=== PATIENT | female | born 1955 | race Caucasian/White ===

== ENCOUNTER 2016-12-23 00:14 | Emergency (ER) | payer OTHER ==
[2016-12-23] MEDS ORDERED: Zofran 4 MG/2 ML VIAL IV ONE (00:28)
[2016-12-23] MEDS ORDERED: PROTONIX 40 MG IV IV ONE ×2 (00:28→00:39)
[2016-12-23] MEDS ORDERED: GI COCKTAIL 60ML (Belladonn/Phenobarb/Lidoc PO ONE (00:28)
[2016-12-23] MEDS ORDERED: Sodium Chloride 0.9% 1000 ML 1,000 ML IV SCH (00:30)
--- NOTE | 2016-12-23 00:37 | ERPHSYRPT ---
- History of Present Illness Time Seen by Provider: 12/23/16 00:25 Historian: patient Exam Limitations: clinical condition Physician History: PATIENT WITH HISTORY OF DEPRESSION, COMPLAINS OF UPPER EPIGASTRIC PAIN TONIGHT, 4 HOURS AFTER DINNER, DENIES DYSPNEA, DIAPHORESIS, PALPITATIONS, CHEST PAIN, RADIATION TO BACK OR SHOULDER BLADE. Timing/Duration: today Activities at Onset: none Quality: burning, pressure Abdominal Pain Onset Location: epigastric Pain Radiation: no radiation Severity of Pain-Max: severe Severity of Pain-Current: severe Modifying Factors: Improves With: eating Associated Symptoms: nausea Previous symptoms: no prior history Allergies/Adverse Reactions: No Known Drug Allergies Allergy (Unverified 06/10/14 10:07) Home Medications: Aspirin [Jes Chewable] 81 mg PO DAILY 06/10/14 [History] Cholecalciferol (Vitamin D3) [Vitamin D] 800 unit PO DAILY 06/10/14 [History] Sertraline HCl 50 mg [Zoloft 50 mg Tablet] 50 mg PO DAILY 06/10/14 [History] Hx Tetanus, Diphtheria Vaccination/Date Given: No Hx Influenza Vaccination/Date Given: No Hx Pneumococcal Vaccination/Date Given: No - Review of Systems Constitutional: No Fever, No Chills Eyes: No Symptoms Ears, Nose, & Throat: No Symptoms Respiratory: No Symptoms, No Cough, No Dyspnea Cardiac: No Chest Pain, No Edema, No Syncope Abdominal/Gastrointestinal: Abdominal Pain, Nausea, No Vomiting, No Diarrhea Genitourinary Symptoms: No Symptoms, No Dysuria Musculoskeletal: No Symptoms, No Back Pain, No Neck Pain Skin: No Symptoms, No Rash Neurological: No Dizziness, No Focal Weakness, No Sensory Changes Psychological: No Symptoms Endocrine: No Symptoms All Other Systems: Reviewed and Negative - Past Medical History Pertinent Past Medical History: Yes Neurological History: No Pertinent History Cardiac History: Myocardial Infarction ([place]) Respiratory History: No Pertinent History Endocrine Medical History: No Pertinent History Musculoskeletal History: Osteoarthritis Psycho-Social History: Depression Other Medical History: SILENT [place] 6-7 YEARS AGO - Past Surgical History Past Surgical History: Yes Female Surgical History: Hysterectomy - Social History Smoking Status: Never smoker Exposure to second hand smoke: No Drug Use: none Patient Lives Alone: No - Nursing Vital Signs Nursing Vital Signs: Initial Vital Signs Temperature 98 F 12/23/16 00:26 Pulse Rate 76 12/23/16 00:26 Respiratory Rate 16 12/23/16 00:26 Blood Pressure 143/80 12/23/16 00:26 O2 Sat by Pulse Oximetry 97 12/23/16 00:26 Pain Scale Pain Intensity 4 - Physical Exam General Appearance: mild distress Eye Exam: PERRL/EOMI, eyes nml inspection Ears, Nose, Throat Exam: normal ENT inspection, pharynx normal, moist mucous membranes Neck Exam: normal inspection, non-tender, supple, full range of motion Respiratory Exam: normal breath sounds, lungs clear, No respiratory distress Cardiovascular Exam: regular rate/rhythm, normal heart sounds Gastrointestinal/Abdomen Exam: soft, normal bowel sounds, tenderness (, RIGHT UPPER QUAD TENDERNESS), No mass Back Exam: normal inspection, normal range of motion, No CVA tenderness, No vertebral tenderness Extremity Exam: normal inspection, normal range of motion, pelvis stable Neurologic Exam: alert, oriented x 3, cooperative, normal mood/affect, nml cerebellar function, sensation nml, No motor deficits Skin Exam: normal color, warm, dry SpO2 Interpretation: normal SpO2: 97 Oxygen Delivery: Room Air - Course EKG Interpreted by Me: RATE, Sinus Rhythm, NORMAL AXIS - CT Exams Abdomen/Pelvis CT Interpretation: Tele-radiologist Report (QUESTION MILD ANTRAL/PROXIMAL DUODENAL WALL THICKENING), Normal Appendix Ordered Tests: Active Orders 24 hr Category Date Time Status Clean Catch Urine Specimen STAT Care 12/23/16 00:28 Active EKG-ER Only STAT Care 12/23/16 00:28 Active IV Insertion STAT Care 12/23/16 00:28 Active ABDOMEN AND PELVIS W CONTRAST [CT] Stat Exams 12/23/16 00:28 Taken AMYLASE Stat Lab 12/23/16 00:30 Completed CBC W DIFF Stat Lab 12/23/16 00:30 Completed CMP Stat Lab 12/23/16 00:30 Completed LIPASE Stat Lab 12/23/16 00:30 Completed TROPONIN Q3H Lab 12/23/16 00:30 Completed TROPONIN Q3H Lab 12/23/16 03:30 Ordered TROPONIN Q3H Lab 12/23/16 06:30 Ordered TROPONIN Q3H Lab 12/23/16 09:30 Ordered TROPONIN Q3H Lab 12/23/16 12:30 Ordered Urine Triage Profile Stat Lab 12/23/16 01:37 Completed Medication Summary Generic Name Dose Route Start Last Admin Trade Name Freq PRN Reason Stop Dose Admin Fentanyl Citrate 100 mcg 12/23/16 02:00 Sublimaze 100 Mcg/2 Ml IV 12/23/16 02:01 STAT ONE Sodium Chloride 1,000 mls @ 250 mls/hr 12/23/16 00:41 12/23/16 00:53 Sodium Chloride 0.9% 1000 Ml IV 12/23/16 04:40 250 mls/hr .Q4H STA Administration Discontinued Medications Generic Name Dose Route Start Last Admin Trade Name Nevin PRN Reason Stop Dose Admin Al Hydrox/Mg Hydrox/Simethicone Confirm 12/23/16 00:41 Maalox Es 30 Ml Unit Dose Administered 12/23/16 00:42 Dose 30 ml .ROUTE .STK-MED ONE Belladonna Alkaloids/Phenobarbital 60 ml 12/23/16 00:28 12/23/16 00:54 Gi Cocktail 60ml (Belladonn/Phenobarb/Lidoc* PO 12/23/16 00:29 60 ml STAT ONE Administration Belladonna Alkaloids/Phenobarbital Confirm 12/23/16 00:42 Donnatol Liquid Administered 12/23/16 00:43 Dose 64.8 mg .ROUTE .STK-MED ONE Sodium Chloride 1,000 mls @ 100 mls/hr 12/23/16 00:30 Sodium Chloride 0.9% 1000 Ml IV 01/22/17 00:29 .Q10H TABITHA Sodium Chloride Confirm 12/23/16 00:41 Sodium Chloride 0.9% 1000 Ml Administered 12/23/16 00:42 Dose 1,000 mls @ ud .ROUTE .STK-MED ONE Lidocaine HCl Confirm 12/23/16 00:40 Xylocaine Hcl Viscous * Administered 12/23/16 00:41 Dose 20 ml .ROUTE .STK-MED ONE Ondansetron HCl 4 mg 12/23/16 00:28 12/23/16 00:53 Zofran 4 Mg/2 Ml Vial IV 12/23/16 00:29 4 mg STAT ONE Administration Ondansetron HCl Confirm 12/23/16 00:39 Zofran 4 Mg/2 Ml Vial Administered 12/23/16 00:40 Dose 4 mg .ROUTE .STK-MED ONE Pantoprazole Sodium 40 mg 12/23/16 00:28 12/23/16 00:54 Protonix 40 Mg Iv IV 12/23/16 00:29 40 mg STAT ONE Administration Pantoprazole Sodium Confirm 12/23/16 00:39 Protonix 40 Mg Iv Administered 12/23/16 00:40 Dose 40 mg IV .K-MED ONE Lab/Rad Data: Laboratory Result Diagrams 12/23/16 00:30 12/23/16 00:30 Laboratory Results 12/23/16 12/23/16 12/23/16 Range/Units 01:37 00:30 00:30 WBC (4.0-10.5) K/mm3 RBC (4.1-5.4) M/mm3 Hgb (12.0-16.0) gm/dl Hct (35-47) % MCV (78-100) fl MCH (26-32) pg MCHC (32-36) g/dl RDW (11.5-14.0) % Plt Count (150-450) K/mm3 MPV (6-9.5) fl Gran % (36.0-66.0) % Lymphocytes % (24.0-44.0) % Monocytes % (0.0-12.0) % Eosinophils % (0.00-5.0) % Basophils % (0.0-0.4) % Basophils # (0-0.4) Sodium 142 (136-145) mEq/L Potassium 3.5 (3.5-5.1) mEq/L Chloride 106 (98-107) mEq/L Carbon Dioxide 24.8 (21-32) mEq/L Anion Gap 15.0 (5-15) MEQ/L BUN 22 H (9-20) mg/dL Creatinine 0.95 (0.55-1.30) mg/dl Estimated GFR > 60 ML/MIN Glucose 116 H (70-110) MG/DL Calcium 9.6 (8.5-10.1) mg/dL Total Bilirubin 0.50 (0.2-1.0) mg/dL AST 25 (15-37) U/L ALT 32 (12-78) U/L Alkaline Phosphatase 89 (46-116) U/L Troponin I < 0.017 (0.000-0.056) ng/ml Serum Total Protein 6.9 (6.4-8.2) gm/dL Albumin 3.9 (3.4-5.0) g/dL Amylase 41 (25-115) U/L Lipase 164 (73-393) U/L Urine Opiates Level NEG. (NEGATIVE) Ur Methadone NEG. (NEGATIVE) Urine Barbiturates NEG. (NEGATIVE) Ur Phencyclidine (PCP) NEG. (NEGATIVE) Urine Amphetamine POS. (NEGATIVE) U Benzodiazepine Level NEG. (NEGATIVE) Urine Cocaine NEG. (NEGATIVE) Urine Marijuana (THC) NEG. (NEGATIVE) 12/23/16 Range/Units 00:30 WBC 7.8 (4.0-10.5) K/mm3 RBC 4.21 (4.1-5.4) M/mm3 Hgb 12.6 (12.0-16.0) gm/dl Hct 37.8 (35-47) % MCV 89.8 (78-100) fl MCH 29.9 (26-32) pg MCHC 33.3 (32-36) g/dl RDW 13.5 (11.5-14.0) % Plt Count 266 (150-450) K/mm3 MPV 10.4 H (6-9.5) fl Gran % 61.6 (36.0-66.0) % Lymphocytes % 25.6 (24.0-44.0) % Monocytes % 11.0 (0.0-12.0) % Eosinophils % 1.4 (0.00-5.0) % Basophils % 0.4 (0.0-0.4) % Basophils # 0.03 (0-0.4) Sodium (136-145) mEq/L Potassium (3.5-5.1) mEq/L Chloride (98-107) mEq/L Carbon Dioxide (21-32) mEq/L Anion Gap (5-15) MEQ/L BUN (9-20) mg/dL Creatinine (0.55-1.30) mg/dl Estimated GFR ML/MIN Glucose (70-110) MG/DL Calcium (8.5-10.1) mg/dL Total Bilirubin (0.2-1.0) mg/dL AST (15-37) U/L ALT (12-78) U/L Alkaline Phosphatase (46-116) U/L Troponin I (0.000-0.056) ng/ml Serum Total Protein (6.4-8.2) gm/dL Albumin (3.4-5.0) g/dL Amylase (25-115) U/L Lipase (73-393) U/L Urine Opiates Level (NEGATIVE) Ur Methadone (NEGATIVE) Urine Barbiturates (NEGATIVE) Ur Phencyclidine (PCP) (NEGATIVE) Urine Amphetamine (NEGATIVE) U Benzodiazepine Level (NEGATIVE) Urine Cocaine (NEGATIVE) Urine Marijuana (THC) (NEGATIVE) - Progress Progress: improved, pain not gone completely Progress Note: 12/23/16 02:07 PATIENT GIVEN IV NORMAL SALINE 250ML/HR, ZOFRAN ,4MG, PROTONIX 40MG IV, GI COCKTAIL WHICH IMPROVED PAIN. FENTANYL 100MCG IV Counseled pt/family regarding: lab results, diagnosis, need for follow-up, rad results - Departure Time of Disposition: 02:30 Departure Disposition: Home Clinical Impression: ABDOMINAL PAIN Condition: Stable Critical Care Time: No Additional Instructions: AVOID GREASY OR SPICY FOODS. BEGIN PREVACID 30MG DAILY FOR 4 WEEKS. CONSULT YOUR PRIMARY CARE PHYSICIAN IN 1 WEEK. FOLLOWUP WITH YOUR FAMILY PHYSICIAN IN 1 WEEK. RETURN TO EMERGENCY FOR ONSET OF INCREASING PAIN OR VOMITING. Prescriptions: Lansoprazole [Prevacid] 30 mg PO DAILY #30 capsule.
[2016-12-23] MEDS ORDERED: Zofran 4 MG/2 ML VIAL ONE (00:39)
[2016-12-23] MEDS ORDERED: XYLOCAINE HCl Viscous ONE (00:40)
[2016-12-23 00:41] LABS: BASOPHIL % 0.4 % (0.0-0.4); Eosinophil % 1.4 % (0.00-5.0); Granulocytes % 61.6 % (36.0-66.0); Lymphocytes % 25.6 % (24.0-44.0); Mean Cell Volume 89.8 fl (78-100); Mean Corpuscular Hemoglobin 29.9 pg (26-32); Mean Platelet Volume 10.4 fl (6-9.5); Platelet Count 266 K/mm3 (150-450); Red Blood Count 4.21 M/mm3 (4.1-5.4); Red Cell Distribution Width 13.5 % (11.5-14.0); White Blood Count 7.8 K/mm3 (4.0-10.5)
[2016-12-23] MEDS ORDERED: Sodium Chloride 0.9% 1000 ML 1,000 ML IV STA (00:41)
[2016-12-23] MEDS ORDERED: MAALOX ES 30 ML UNIT DOSE ONE (00:41)
[2016-12-23] MEDS ORDERED: Sodium Chloride 0.9% 1000 ML 1,000 ML ONE ×2 (00:41→02:07)
[2016-12-23] MEDS ORDERED: Donnatol Liquid ONE (00:42)
[2016-12-23 01:02] LABS: ALBUMIN 3.9 g/dL (3.4-5.0); ALKALINE PHOSPHATASE 89 U/L (46-116); BLOOD UREA NITROGEN 22 mg/dL (9-20); CHLORIDE 106 mEq/L (98-107); Carbon Dioxide 24.8 mEq/L (21-32); Glucose 116 MG/DL (70-110); LIPASE 164 U/L (73-393); Potassium 3.5 mEq/L (3.5-5.1); SGOT/AST 25 U/L (15-37); SGPT/ALT 32 U/L (12-78); SODIUM 142 mEq/L (136-145); Total Protein 6.9 gm/dL (6.4-8.2)
[2016-12-23] MEDS ORDERED: SUBLIMAZE 100 MCG/2 ML IV ONE (02:00)
[2016-12-23 02:06] VITALS: O2SAT 97
[2016-12-23] MEDS ORDERED: SUBLIMAZE 100 MCG/2 ML ONE (02:06)
[2016-12-23 02:58] VITALS: BP 112/70; PULSE 92
--- NOTE | 2016-12-23 08:48 | XRAY ---
Indication: Chest/upper abdomen pain. Nausea. Multiple contiguous axial images obtained through the abdomen and pelvis using 80 cc Isovue 370 contrast only. Comparison: None Lung bases demonstrate minimal bibasilar dependent atelectasis. Heart is not enlarged. Stomach is distended with food. Noncontrasted bowel loops appear nonobstructed. Query descending/transverse duodenum wall thickening. There is mild/moderate diffuse scattered colonic fecal debris throughout. Normal appendix. No free fluid/air. Gallbladder is contracted without gallstones or biliary distention. Previous hysterectomy. Remaining liver, pancreas, spleen, adrenal glands, kidneys, ureters, bladder, and aorta appear unremarkable. No pathologic retroperitoneal lymphadenopathy. Osseous structures intact. Impression: 1. Fecal stasis without obstruction. 2. Query duodenal wall thickening. Rule out duodenitis. Comment: Preliminary interpretation was made by [facility]. No critical discrepancy. CT DI 12.
== END 2016-12-23 03:11 | disposition home or self-care (01) ==
LOC: ED 00:14
DX: R10.13 Epigastric pain (principal); R11.0 Nausea
CPT/HCPCS: 36000; 36415; 74177; 80053; 80307; 82150; 83690; 84484; 85025; 93005; 96360; 96365; 96374; 96375; 99284; J2405; J3010; A9270-GY

== ENCOUNTER 2021-06-26 06:36 | Emergency (ER) | payer OTHER ==
--- NOTE | 2021-06-26 07:39 | ERPHSYRPT ---
- History of Present Illness Time Seen by Provider: 06/26/21 07:00 Source: patient Exam Limitations: no limitations Patient Subjective Stated Complaint: sore throat and cough Triage Nursing Assessment: pt c/o sore throat, cough, headache and body aches. Pt states, "My throat hurts so bad that it hurts to swallow". Lungs clear, heart tones reg. Pt had telephone visit with Dr. Suárez yesterday and he put her on amoxicillin for strep throat. Physician History: This is a 66-year-old white female with history of hypertension hypothyroidism and presents with sore throat that is significant and started abruptly yeste rday. Patient was evaluated by telemedicine and was prescribed amoxicillin which she took. This morning, she states her throat is more sore than yesterday and is having difficulty swallowing. Patient has no shortness of breath. She has a mild cough but it hurts to cough. She has not had a fever. She has no known exposure to individuals who have been ill other than her granddaughter that had strep throat. Timing/Duration: yesterday Cough Quality/Degree: mild, dry cough Possible Cause: no prior episodes Modifying Factors: Improves With: nothing Associated Symptoms: sore throat Allergies/Adverse Reactions: No Known Drug Allergies Allergy (Verified 06/26/21 06:55) Home Medications: Aspirin [Jes Chewable] 81 mg PO DAILY 06/10/14 [History] Cholecalciferol (Vitamin D3) [Vitamin D] 1,000 unit PO DAILY 06/10/14 [History] Sertraline HCl 50 mg [Zoloft 50 mg Tablet] 50 mg PO DAILY 06/10/14 [History] ALPRAZolam [Alprazolam] 0.5 mg PO HS 06/26/21 [History] Amlodipine Besylate 5 mg [Norvasc 5 mg] 5 mg PO DAILY 06/26/21 [History] Amoxicillin 500 mg PO TID 06/26/21 [History] Atorvastatin Calcium 40 mg PO DAILY 06/26/21 [History] Bupropion HCl [Wellbutrin Xl] 300 mg PO DAILY 06/26/21 [History] Levothyroxine Sodium 1 tab PO DAILY 06/26/21 [History] Sertraline HCl [Zoloft] 100 mg PO HS 06/26/21 [History] hydroCHLOROthiazide [Hydrochlorothiazide] 12.5 mg PO DAILY 06/26/21 [History] Hx Tetanus, Diphtheria Vaccination/Date Given: Yes Hx Influenza Vaccination/Date Given: No Hx Pneumococcal Vaccination/Date Given: No Immunizations Up to Date: Yes Travel Risk - International Travel Have you traveled outside of the country in past 3 weeks: No - Coronavirus Screening Are you exhibiting any of the following symptoms?: Yes Symptoms: Fever, Cough: New Onset, Shortness of Breath, Headaches/Body Aches/Fatigue Close contact with a COVID-19 positive Pt in past 14-21 Days: No - Vaccine Status Have you recieved a Covid-19 vaccination: No - Review of Systems Constitutional: No Symptoms Eyes: No Symptoms Ears, Nose, & Throat: Throat Pain, Painful Swallowing Respiratory: No Symptoms Cardiac: No Symptoms Abdominal/Gastrointestinal: No Symptoms Genitourinary Symptoms: No Symptoms Musculoskeletal: No Symptoms Skin: No Symptoms Neurological: No Symptoms Psychological: No Symptoms Endocrine: No Symptoms Hematologic/Lymphatic: No Symptoms Immunological/Allergic: No Symptoms All Other Systems: Reviewed and Negative - Past Medical History Pertinent Past Medical History: Yes Neurological History: No Pertinent History Cardiac History: Arrhythmia, Coronary Artery Disease, High Cholesterol, Hypertension, Myocardial Infarction ([place]) Respiratory History: No Pertinent History Endocrine Medical History: No Pertinent History Musculoskeletal History: Arthritis Psycho-Social History: Depression Other Medical History: Silent [place] 8-10 years ago, heart cath - Past Surgical History Past Surgical History: Yes Neuro Surgical History: No Pertinent History Cardiac: Cardiac Catheterization Respiratory: No Pertinent History Gastrointestinal: No Pertinent History Genitourinary: No Pertinent History Musculoskeletal: Joint Replacement Female Surgical History: Hysterectomy Other Surgical History: rt knee replacement - Social History Smoking Status: Never smoker Exposure to second hand smoke: No Drug Use: none Patient Lives Alone: Yes - Female History Hx Now: No - Nursing Vital Signs Nursing Vital Signs: Initial Vital Signs Temperature 100.4 F 06/26/21 06:44 Pulse Rate 82 06/26/21 06:44 Respiratory Rate 18 06/26/21 06:44 Blood Pressure 139/83 06/26/21 06:44 O2 Sat by Pulse Oximetry 96 06/26/21 06:44 Pain Scale Pain Intensity 9 - Physical Exam General Appearance: no apparent distress, alert, anxiety Eye Exam: PERRL/EOMI, eyes nml inspection Ears, Nose, Throat Exam: moist mucous membranes, pharyngeal erythema Neck Exam: normal inspection, non-tender, supple, full range of motion Respiratory Exam: normal breath sounds, lungs clear, airway intact, No chest tenderness, No respiratory distress Cardiovascular Exam: regular rate/rhythm, normal heart sounds, normal peripheral pulses Gastrointestinal/Abdomen Exam: soft, normal bowel sounds, No tenderness Pelvic Exam: not done Rectal Exam: not done Back Exam: normal inspection, normal range of motion, No CVA tenderness, No vertebral tenderness Extremity Exam: normal inspection, normal range of motion, pelvis stable Neurologic Exam: alert, oriented x 3, cooperative, anode worker II-XII nml as tested, normal mood/affect, nml cerebellar function, nml station & gait, sensation nml Skin Exam: normal color, warm, dry Lymphatic Exam: No adenopathy SpO2 Interpretation: normal SpO2: 96 O2 Delivery: Room Air - Course Nursing assessment & vital signs reviewed: Yes Ordered Tests: Active Orders 24 hr Category Date Time Status COVID AG-BINAX NOW RAPID TEST Stat Lab 06/26/21 07:30 Completed INFLUENZA A+B EDGAR Stat Lab 06/26/21 07:30 Completed Medication Summary Discontinued Medications Generic Name Dose Route Start Last Admin Trade Name Freq PRN Reason Stop Dose Admin Methylprednisolone Sodium 0 mg 06/26/21 08:52 06/26/21 08:57 Succinate 125 mg/ Sterile IM 06/26/21 08:53 125 mg Water 2 ml STAT ONE Administration Methylprednisolone Sodium Succinate Confirm 06/26/21 08:55 Methylprednis Sod Succ 125 Mg/2 Ml Vial Administered 06/26/21 08:56 Dose 125 mg .ROUTE .STK-MED ONE Sterile Water Confirm 06/26/21 08:55 Water For Injection,Sterile 10 Ml Vial Administered 06/26/21 08:56 Dose 10 ml IJ .STK-MED ONE Lab/Rad Data: Laboratory Results 06/26/21 06/26/21 Range/Units 07:30 07:30 Influenza Type A Ag NEGATIVE (NEGATIVE) Influenza Type B Ag NEGATIVE (NEGATIVE) SARS-CoV-2 Ag (Rapid) POSITIVE A* (NEGATIVE) Group A Strep Antibody NOT DETECTED (NEGATIVE) - Progress Progress: unchanged Air Movement: good Blood Culture(s) Obtained: No Antibiotics given: No Counseled pt/family regarding: lab results, diagnosis, need for follow-up - Departure Departure Disposition: Home Clinical Impression: COVID-19 virus infection, Viral pharyngitis Condition: Stable Critical Care Time: No Referrals: ANGELICA KRISHNA [Primary Care Provider] - Follow up/PCP as directed Additional Instructions: Drink plenty of cold fluids. Take your medication as prescribed. May also add cough drops as needed daily. Follow-up with your primary care physician for further management. Quarantine yourself per instructions. Prescriptions: Hydrocodone/Acetaminophen [Hydrocodone-Acetamn 7.5-325/15] 10 ml PO Q8H PRN PRN #120 ml MDD 30 ml PRN Reason: Cough Prednisone 10 mg [Deltasone 10 mg] 10 mg PO TID #12 tablet
[2021-06-26 08:31] LABS: INFLUENZA A NEGATIVE (NEGATIVE); INFLUENZA B NEGATIVE (NEGATIVE)
[2021-06-26 08:32] LABS: COVID AG -BINAX NOW RAPID TEST POSITIVE (NEGATIVE)
[2021-06-26] MEDS ORDERED: solu-MEDROL 125 MG, Sterile H2O 10 ml 2 ML IM ONE ×2 (08:52)
[2021-06-26] MEDS ORDERED: solu-MEDROL ONE (08:55)
[2021-06-26] MEDS ORDERED: Sterile H2O 10 ml IJ ONE (08:55)
[2021-06-26 09:04] VITALS: BP 132/67; PULSE 88
[2021-06-26 19:09] VITALS: O2SAT 96
== END 2021-06-26 09:18 | disposition home or self-care (01) ==
LOC: ED 06:36
DX: U07.1 COVID-19 (principal); J02.8 Acute pharyngitis due to other specified organisms; B97.89 Other viral agents as the cause of diseases classified elsewhere; R13.10 Dysphagia, unspecified; R05.9 Cough, unspecified; E78.5 Hyperlipidemia, unspecified; I25.10 Atherosclerotic heart disease of native coronary artery without angina pectoris; I10 Essential (primary) hypertension; I25.2 Old myocardial infarction; Z79.891 Long term (current) use of opiate analgesic; Z79.52 Long term (current) use of systemic steroids; Z79.899 Other long term (current) drug therapy
CPT/HCPCS: 87400; 87651; 96372; 99000; 99284; J2930

== ENCOUNTER 2023-10-24 12:38 | Inpatient (IN) | payer MEDICARE, OTHER ==
[2023-10-24] MEDS ORDERED: Zofran 4 MG/2 ML VIAL ONE (13:22)
[2023-10-24] MEDS ORDERED: MORPHINE SULFATE 4 MG INJ ONE (13:22)
[2023-10-24] MEDS ORDERED: PROTONIX 40 MG IV IV ONE (13:22)
[2023-10-24] MEDS ORDERED: Sodium Chloride 0.9% 500 ML 500 ML IV ONE (13:23)
[2023-10-24] MEDS: Zofran 4 MG/2 ML VIAL IV ONE (13:27)
[2023-10-24] MEDS: PROTONIX 40 MG IV IV ONE (13:27)
[2023-10-24] MEDS: MORPHINE SULFATE 4 MG INJ IV ONE (13:27)
--- NOTE | 2023-10-24 13:27 | ERPHSYRPT ---
- History of Present Illness Time Seen by Provider: 10/24/23 12:54 Historian: patient, family Exam Limitations: no limitations Patient Subjective Stated Complaint: Abdominal pain Triage Nursing Assessment: Patient ambulated back to ED and transferred self to bed. Patient A+O X3. Patient complains of mid abdominal pain 6/10 that started 2 weeks ago that has gotten worse. Patient complains of mid abdominal pain 6/10 with N/V and diarrhea. Physician History: 68 years old female with history of hypertension, hyperlipidemia, coronary artery disease presented in the ER with complaint of epigastric/periumbilical area pain off and on for last 2 weeks with intermittent nausea and vomiting nonprojectile, nonbilious 3 times in 2 weeks. Also reports multiple episodes of loose stool without hematochezia. Patient reports pain is getting worse since last night and is unable to find a comfortable position. Patient been taking [id number] medication with no significant relief. Denies any chest pain or palpitations. No fever or chills reported. No history of C. difficile. Allergies/Adverse Reactions: No Known Drug Allergies Allergy (Verified 10/24/23 16:40) Home Medications: ALPRAZolam [Alprazolam] 0.5 mg PO TID PRN PRN 06/26/21 [History] Atorvastatin Calcium 80 mg PO DAILY 06/26/21 [History] hydroCHLOROthiazide [Hydrochlorothiazide] 50 mg PO DAILY 06/26/21 [History] Amlodipine Besylate 5 mg [Norvasc 5 mg] 2.5 mg PO HS 09/28/22 [History] Aspirin EC 81 mg [Ecotrin 81 mg] 1 tab PO DAILY 09/28/22 [History] Levothyroxine Sodium 25 Mcg [Synthroid 25 Mcg] 25 mcg PO DAILY 09/28/22 [History] Ascorbic Acid/Collagen Hydr [Collagen Plus Vit C Capsule] 2,500 mg PO DAILY 10/24/23 [History] Dextroamphetamine/Amphetamine [Dextroamp-Amphetamine 5 mg Tab] 5 mg PO 0800,1200 10/24/23 [History] Furosemide 20 mg [Lasix 20 mg] 20 mg PO DAILY 10/24/23 [History] Losartan Potassium 25 mg PO DAILY 10/24/23 [History] Sertraline HCl [Zoloft] 100 mg PO HS 10/24/23 [History] Vitamin D3/Soy Isoflavone [Iso D3 2,000 Unit Tablet] 2,000 units PO DAILY 10/24/23 [History] Hx Tetanus, Diphtheria Vaccination/Date Given: Yes Hx Influenza Vaccination/Date Given: No Hx Pneumococcal Vaccination/Date Given: No Immunizations Up to Date: Yes Travel Risk - International Travel Have you traveled outside of the country in past 3 weeks: No - Emerging Infectious Disease Are you exhibiting symptoms associated with any current EIDs: No - Review of Systems Constitutional: No Symptoms Ears, Nose, & Throat: No Symptoms Respiratory: No Symptoms Cardiac: No Symptoms Abdominal/Gastrointestinal: Abdominal Pain, Nausea, Vomiting, Diarrhea Genitourinary Symptoms: No Symptoms Musculoskeletal: No Symptoms Skin: No Symptoms Neurological: No Symptoms Endocrine: No Symptoms Hematologic/Lymphatic: No Symptoms Immunological/Allergic: No Symptoms - Past Medical History Pertinent Past Medical History: Yes Neurological History: No Pertinent History ENT History: Cataracts Cardiac History: Arrhythmia, Coronary Artery Disease, Myocardial Infarction (NH), High Cholesterol, Hypertension Respiratory History: No Pertinent History Endocrine Medical History: No Pertinent History, Hypothyroidism Musculoskeletal History: Arthritis, Osteoarthritis GI Medical History: No Pertinent History History: No Pertinent History Psycho-Social History: Depression, Anxiety Female Reproductive Disorders: Fibroids Other Medical History: SILENT NH, rheumatic fever, heart murmur, - Past Surgical History Past Surgical History: Yes Neuro Surgical History: No Pertinent History Cardiac: Cardiac Catheterization Respiratory: No Pertinent History Gastrointestinal: No Pertinent History Genitourinary: No Pertinent History Musculoskeletal: Joint Replacement Female Surgical History: Hysterectomy, Tubal Ligation Other Surgical History: maico knee replaced, - Social History Smoking Status: Former smoker Exposure to second hand smoke: Yes Drug Use: none Patient Lives Alone: Yes - Nursing Vital Signs Nursing Vital Signs: Initial Vital Signs Temperature 97.3 F 10/24/23 12:58 Pulse Rate 61 10/24/23 12:58 Respiratory Rate 18 10/24/23 12:58 Blood Pressure 152/86 10/24/23 12:58 O2 Sat by Pulse Oximetry 96 10/24/23 12:58 Pain Scale Pain Intensity 0 - Physical Exam General Appearance: no apparent distress, alert Eye Exam: PERRL/EOMI Ears, Nose, Throat Exam: normal ENT inspection Neck Exam: normal inspection, non-tender, supple, full range of motion Respiratory Exam: normal breath sounds, lungs clear Cardiovascular Exam: regular rate/rhythm, normal heart sounds Gastrointestinal/Abdomen Exam: soft, normal bowel sounds, tenderness (Umbilical and epigastric area. Mild tenderness right upper quadrant with negative Sloan sign.) Back Exam: normal inspection, normal range of motion Extremity Exam: normal inspection, normal range of motion Neurologic Exam: alert, oriented x 3, cooperative Skin Exam: normal color SpO2 Interpretation: normal SpO2: 96 O2 Delivery: Room Air Ordered Tests: Medication Summary Discontinued Medications Generic Name Dose Route Start Last Admin Trade Name Freq PRN Reason Stop Dose Admin Acetaminophen 650 mg 10/24/23 18:40 10/27/23 16:08 Acetaminophen 325 Mg Tablet PO 11/23/23 18:39 650 mg Q4H PRN PRN Administration PAIN, FEVER, HEADACHE Hydrocodone Bitart/Acetaminophen 1 tab 10/26/23 07:45 10/26/23 07:54 Hydrocodone/Apap 5/325 1 Tab Tablet PO 10/31/23 07:44 1 tab Q4H PRN PRN Administration PAIN Alprazolam 0.5 mg 10/24/23 18:15 10/27/23 19:57 Alprazolam 0.5 Mg Tablet PO 11/23/23 18:14 0.5 mg TID PRN PRN Administration NAUSEA/VOMITING Amlodipine Besylate 2.5 mg 10/24/23 22:00 10/28/23 23:09 Amlodipine Besylate 5 Mg Tablet PO 11/23/23 21:59 Not Given HS [facility] Aspirin 81 mg 10/25/23 12:00 10/25/23 12:44 Aspirin 81 Mg Tablet.Ec PO 11/24/23 11:59 Not Given DAILY@1200 [facility] Cholecalciferol 2,000 unit 10/25/23 12:00 10/28/23 12:22 Cholecalciferol (Vitamin D3) 1000 Unit Tablet PO 11/24/23 11:59 2,000 unit DAILY@1200 TABITHA Administration Furosemide 20 mg 10/27/23 10:58 Furosemide 20 Mg/Vial IV 10/27/23 10:59 STAT ONE Furosemide 40 mg 10/27/23 08:09 10/27/23 08:42 Furosemide 40 Mg/4 Ml Vial IV 10/27/23 08:10 40 mg STAT ONE Administration Sodium Chloride 500 mls @ 500 mls/hr 10/24/23 13:17 10/24/23 14:28 Sodium Chloride 0.9% 500 Ml IV 10/24/23 14:16 Infused .Q1H ONE Infusion Sodium Chloride Confirm 10/24/23 13:23 Sodium Chloride 0.9% 500 Ml Administered 10/24/23 13:24 Dose 500 mls @ ud IV .STK-MED ONE Potassium Chloride 20 meq in 100 mls @ 50 mls/hr 10/24/23 14:00 10/24/23 15:44 Potassium Chloride 20 Meq In Water 100ml IV 10/24/23 17:59 50 mls/hr Q2H TABITHA Administration Sodium Chloride 1,000 mls @ 125 mls/hr 10/24/23 14:15 10/24/23 14:10 Sodium Chloride 0.9% 1000 Ml IV 11/23/23 14:14 125 mls/hr .Q8H TABITHA Administration Levofloxacin/Dextrose 750 mg in 150 mls @ 100 mls/hr 10/24/23 14:48 10/24/23 15:44 Levofloxacin 750mg/150ml D5w IV 10/24/23 16:17 100 ml/hr STAT STA 100 mls/hr Administration Metronidazole 500 mg in 100 mls @ 200 mls/hr 10/24/23 14:48 10/24/23 15:45 Flagyl 500 Mg Ivpb IV 10/24/23 15:17 Infused STAT STA Infusion Metronidazole Confirm 10/24/23 15:08 Flagyl 500 Mg Ivpb Administered 10/24/23 15:09 Dose 500 mg in 100 mls @ ud IV .STK-MED ONE Levofloxacin/Dextrose Confirm 10/24/23 15:43 Levofloxacin 750mg/150ml D5w Administered 10/24/23 15:44 Dose 750 mg in 150 mls @ ud IV .STK-MED ONE Potassium Chloride Confirm 10/24/23 14:04 Potassium Chloride 20 Meq In Water 100ml Administered 10/24/23 14:05 Dose 100 mls @ ud IV .STK-MED ONE Potassium Chloride Confirm 10/24/23 15:43 Potassium Chloride 20 Meq In Water 100ml Administered 10/24/23 15:44 Dose 100 mls @ ud IV .STK-MED ONE Sodium Chloride 1,000 mls @ 100 mls/hr 10/24/23 18:45 10/26/23 11:52 Sodium Chloride 0.9% 1000 Ml IV 11/23/23 18:44 Not Given .Q10H TABITHA Magnesium Sulfate/Dextrose 100 mls @ 200 mls/hr 10/25/23 05:22 10/25/23 05:32 Magnesium 1 Gm / 100 Ml D5w IV 10/25/23 05:51 200 mls/hr STAT ONE Administration Metronidazole 500 mg in 100 mls @ 200 mls/hr 10/25/23 12:00 10/28/23 19:21 Flagyl 500 Mg Ivpb IV 11/24/23 11:59 200 mls/hr Q6HT TABITHA Administration Levofloxacin/Dextrose 750 mg in 150 mls @ 100 mls/hr 10/26/23 10:00 10/28/23 09:06 Levofloxacin 750mg/150ml D5w IV 11/25/23 09:59 100 mls/hr Q48H TABITHA Administration Sodium Chloride Confirm 10/24/23 14:04 Sodium Chloride 0.9% 1000 Ml Administered 10/24/23 14:05 Dose 1,000 mls @ ud .ROUTE .STK-MED ONE Lactated Ringer's 1,000 mls @ 50 mls/hr 10/25/23 14:30 10/25/23 15:21 Lactated Ringers IV 10/26/23 10:29 50 mls/hr .Q20H TABITHA Administration Lactated Ringer's 1,000 mls @ 50 mls/hr 10/28/23 10:00 10/28/23 10:45 Lactated Ringers IV 10/29/23 05:59 50 mls/hr .Q20H TABITHA Administration Levothyroxine Sodium 25 mcg 10/25/23 08:00 10/28/23 09:06 Levothyroxine Sodium 25 Mcg Tablet PO 11/24/23 07:59 25 mcg DAILY@0800 TABITHA Administration Lidocaine HCl Confirm 10/25/23 15:40 Lidocaine - Mpf 2% 5 Ml Vial Administered 10/25/23 15:41 Dose 5 ml .ROUTE .STK-MED ONE Lidocaine HCl Confirm 10/28/23 17:46 Lidocaine - Mpf 2% 5 Ml Vial Administered 10/28/23 17:47 Dose 5 ml .ROUTE .STK-MED ONE Loperamide HCl 2 mg 10/26/23 07:47 10/26/23 07:54 Loperamide Hcl 2 Mg Capsule PO 11/25/23 07:46 2 mg PRN PRN Administration DIARRHEA Losartan Potassium 25 mg 10/25/23 12:00 10/28/23 12:22 Losartan Potassium 50 Mg Tablet PO 11/24/23 11:59 25 mg DAILY@1200 TABITHA Administration Midazolam HCl Confirm 10/25/23 15:40 Midazolam Hcl 2 Mg/2 Ml Vial Administered 10/25/23 15:41 Dose 2 mg .ROUTE .STK-MED ONE Midazolam HCl Confirm 10/28/23 17:47 Midazolam Hcl 2 Mg/2 Ml Vial Administered 10/28/23 17:48 Dose 2 mg .ROUTE .STK-MED ONE Miscellaneous Information 1 each 10/25/23 07:00 Medication Intervention 1 Each Each 11/24/23 06:59 .RN TO CHECK [facility] Miscellaneous Information 1 each 10/25/23 07:15 Medication Intervention 1 Each Each 11/24/23 07:14 .RN TO CHECK [facility] Morphine Sulfate 4 mg 10/24/23 13:16 10/24/23 13:27 Morphine Sulfate 4 Mg/Ml Injection IV 10/24/23 13:17 4 mg STAT ONE Administration Morphine Sulfate Confirm 10/24/23 13:22 Morphine Sulfate 4 Mg/Ml Injection Administered 10/24/23 13:23 Dose 4 mg .ROUTE .STK-MED ONE Morphine Sulfate 0.5 mg 10/24/23 18:40 Morphine Sulfate 2 Mg/Ml Inj IV 10/29/23 18:39 Q4H PRN PRN PAIN Non-Formulary Medication 5 mg 10/24/23 22:00 Dextroamphetamine/Amphetamine [Dextroamp-Amphetamine 5 Mg Tab] PO 11/23/23 21:59 BID TABITHA Ondansetron HCl 4 mg 10/24/23 13:16 10/24/23 13:27 Ondansetron Hcl 4 Mg/2 Ml Vial IV 10/24/23 13:17 4 mg STAT ONE Administration Ondansetron HCl Confirm 10/24/23 13:22 Ondansetron Hcl 4 Mg/2 Ml Vial Administered 10/24/23 13:23 Dose 4 mg .ROUTE .STK-MED ONE Ondansetron HCl 4 mg 10/24/23 18:40 10/28/23 10:43 Ondansetron Hcl 4 Mg/2 Ml Vial IV 11/23/23 18:39 4 mg Q6H PRN PRN Administration NAUSEA/VOMITING Pantoprazole Sodium 40 mg 10/24/23 13:16 10/24/23 13:27 Pantoprazole 40 Mg Vial IV 10/24/23 13:17 40 mg STAT ONE Administration Pantoprazole Sodium Confirm 10/24/23 13:22 Pantoprazole 40 Mg Vial Administered 10/24/23 13:23 Dose 40 mg IV .STK-MED ONE Pantoprazole Sodium 40 mg 10/24/23 18:45 10/25/23 18:21 Pantoprazole 40 Mg Vial IV 11/23/23 18:44 40 mg Q24H TABITHA Administration Pantoprazole Sodium 40 mg 10/26/23 17:00 10/28/23 09:06 Protonix (Pantoprazole) 40 Mg Tablet PO 11/25/23 16:59 40 mg DAILY TABITHA Administration Polyethylene Glycol/Electrolytes 4,000 ml 10/27/23 19:45 10/27/23 20:40 Sod Sulf/Sod/Nahco3/Kcl/Peg's 4000 Ml Bottle PO 10/27/23 19:46 4,000 ml ONCE@1400 ONE Administration Potassium Chloride 40 meq 10/24/23 13:57 10/24/23 14:09 Potassium Chloride Tab 10 Meq Tab PO 10/24/23 13:58 40 meq STAT ONE Administration Potassium Chloride Confirm 10/24/23 14:04 Potassium Chloride Tab 10 Meq Tab Administered 10/24/23 14:05 Dose 40 meq .ROUTE .STK-MED ONE Potassium Chloride 20 meq 10/25/23 05:30 10/25/23 07:48 Potassium Chloride Tab 10 Meq Tab PO 11/24/23 07:31 20 meq Q2H TABITHA Administration Potassium Chloride 20 meq 10/26/23 08:00 10/26/23 13:34 Potassium Chloride Tab 10 Meq Tab PO 10/26/23 14:01 20 meq Q2H TABITHA Administration Prochlorperazine Edisylate 10 mg 10/24/23 16:54 10/27/23 19:57 Prochlorperazine Edisylate 10 Mg/2 Ml Vial IV 11/23/23 16:53 10 mg Q6H PRN PRN Administration NAUSEA/VOMITING Propofol Confirm 10/25/23 15:40 Propofol 10 Mg/Ml 20ml Vial Administered 10/25/23 15:41 Dose 200 mg IV .STK-MED ONE Propofol Confirm 10/28/23 17:47 Propofol 10 Mg/Ml 20ml Vial Administered 10/28/23 17:48 Dose 200 mg IV .STK-MED ONE Propofol Confirm 10/28/23 18:14 Propofol 10 Mg/Ml 20ml Vial Administered 10/28/23 18:15 Dose 200 mg IV .STK-MED ONE Sertraline HCl 100 mg 10/24/23 22:00 10/28/23 23:09 Sertraline Hcl 50 Mg Tab PO 11/23/23 21:59 Not Given HS TABITHA Simvastatin 40 mg 10/25/23 12:00 10/28/23 12:22 Simvastatin 20 Mg Tablet PO 11/24/23 11:59 40 mg DAILY@1200 TABITHA Administration Sodium Bicarbonate 650 mg 10/26/23 10:00 10/28/23 23:09 Sodium Bicarbonate 650 Mg Tablet PO 11/25/23 09:59 Not Given BID TABITHA Lab/Rad Data: Laboratory Result Diagrams 10/25/23 04:26 10/25/23 10:00 Laboratory Results 10/25/23 10/25/23 10/25/23 Range/Units 10:00 05:05 04:26 WBC (4.0-10.5) x10^3/uL RBC (4.1-5.4) x10^6/uL Hgb (12.0-16.0) g/dL Hct (35-47) % MCV (78-100) fL MCH (26-32) pg MCHC (32-36) g/dL RDW (11.5-14.0) % Plt Count (150-450) x10^3/uL MPV (7.5-11.0) fL Gran % (36.0-66.0) % Immature Gran % (Auto) (0.00-0.4) % Nucleat RBC Rel Count (0.00-0.1) % Eos # (Auto) (0-0.5) x10^3/uL Immature Gran # (Auto) (0.00-0.03) x10^3u/L Absolute Lymphs (auto) (1.0-4.6) x10^3/uL Absolute Monos (auto) (0.0-1.3) x10^3/uL Absolute Nucleated RBC (0.00-0.01) x10^3u/L Lymphocytes % (24.0-44.0) % Monocytes % (0.0-12.0) % Eosinophils % (0.00-5.0) % Basophils % (0.0-0.4) % Absolute Granulocytes (1.4-6.9) x10^3/uL Basophils # (0-0.4) x10^3/uL Sodium 139 (135-145) mmol/L Potassium 3.5 3.0 L* (3.5-5.1) mmol/L Chloride 111 H (98-107) mmol/L Carbon Dioxide 23 (22-30) mmol/L Anion Gap 7.9 (5-15) MEQ/L BUN 9 (7-17) mg/dL Creatinine 0.65 (0.52-1.04) mg/dL Estimated GFR 95.8 ML/MIN Glucose 88 (74-106) mg/dL Lactic Acid (0.4-2.0) Calcium 8.4 (8.4-10.2) mg/dL Magnesium 1.7 (1.6-2.3) mg/dL Total Bilirubin 0.60 (0.2-1.3) mg/dL AST 27 (14-36) U/L ALT 19 (0-35) U/L Alkaline Phosphatase 82 (38-126) U/L Troponin I (0.000-0.033) ng/mL Serum Total Protein 5.8 L (6.3-8.2) g/dL Albumin 3.2 L (3.5-5.0) g/dL Lipase (23-300) U/L Urine Color (Yellow) Urine Appearance (Clear) Urine pH (4.6-8.0) Ur Specific [place] (1.005-1.030) Urine Protein (Negative) Urine Glucose (UA) (Negative) mg/dL Urine Ketones (Negative) Urine Blood (Negative) Urine Nitrite (Negative) Urine Bilirubin (Negative) Urine Urobilinogen (0.2) mg/dL Ur Leukocyte Esterase (Negative) U Hyaline Cast (Auto) (0-2) /LPF Urine Microscopic RBC (0-5) /HPF Urine Microscopic WBC (0-5) /HPF Ur Epithelial Cells (None Seen) /HPF Urine Bacteria (None Seen) /HPF Urine Yeast (Budding) (None Seen) /HPF Urine Culture Reflexed (NO) C. difficile Screen (NEGATIVE) C.difficile 027-NAP1-B1 (NEGATIVE) 10/25/23 10/24/23 10/24/23 Range/Units 04:26 21:00 21:00 WBC 6.0 (4.0-10.5) x10^3/uL RBC 3.36 L (4.1-5.4) x10^6/uL Hgb 10.1 L (12.0-16.0) g/dL Hct 30.2 L (35-47) % MCV 89.9 (78-100) fL MCH 30.1 (26-32) pg MCHC 33.4 (32-36) g/dL RDW 13.4 (11.5-14.0) % Plt Count 197 (150-450) x10^3/uL MPV 10.7 (7.5-11.0) fL Gran % 63.4 (36.0-66.0) % Immature Gran % (Auto) 0.3 (0.00-0.4) % Nucleat RBC Rel Count 0.0 (0.00-0.1) % Eos # (Auto) 0.12 (0-0.5) x10^3/uL Immature Gran # (Auto) 0.02 (0.00-0.03) x10^3u/L Absolute Lymphs (auto) 1.45 (1.0-4.6) x10^3/uL Absolute Monos (auto) 0.59 (0.0-1.3) x10^3/uL Absolute Nucleated RBC 0.00 (0.00-0.01) x10^3u/L Lymphocytes % 24.0 (24.0-44.0) % Monocytes % 9.8 (0.0-12.0) % Eosinophils % 2.0 (0.00-5.0) % Basophils % 0.5 (0.0-0.4) % Absolute Granulocytes 3.83 (1.4-6.9) x10^3/uL Basophils # 0.03 (0-0.4) x10^3/uL Sodium (135-145) mmol/L Potassium 3.3 L D (3.5-5.1) mmol/L Chloride (98-107) mmol/L Carbon Dioxide (22-30) mmol/L Anion Gap (5-15) MEQ/L BUN (7-17) mg/dL Creatinine (0.52-1.04) mg/dL Estimated GFR ML/MIN Glucose (74-106) mg/dL Lactic Acid (0.4-2.0) Calcium (8.4-10.2) mg/dL Magnesium (1.6-2.3) mg/dL Total Bilirubin (0.2-1.3) mg/dL AST (14-36) U/L ALT (0-35) U/L Alkaline Phosphatase (38-126) U/L Troponin I < 0.012 (0.000-0.033) ng/mL Serum Total Protein (6.3-8.2) g/dL Albumin (3.5-5.0) g/dL Lipase (23-300) U/L Urine Color (Yellow) Urine Appearance (Clear) Urine pH (4.6-8.0) Ur Specific [place] (1.005-1.030) Urine Protein (Negative) Urine Glucose (UA) (Negative) mg/dL Urine Ketones (Negative) Urine Blood (Negative) Urine Nitrite (Negative) Urine Bilirubin (Negative) Urine Urobilinogen (0.2) mg/dL Ur Leukocyte Esterase (Negative) U Hyaline Cast (Auto) (0-2) /LPF Urine Microscopic RBC (0-5) /HPF Urine Microscopic WBC (0-5) /HPF Ur Epithelial Cells (None Seen) /HPF Urine Bacteria (None Seen) /HPF Urine Yeast (Budding) (None Seen) /HPF Urine Culture Reflexed (NO) C. difficile Screen (NEGATIVE) C.difficile 027-NAP1-B1 (NEGATIVE) 10/24/23 10/24/23 10/24/23 Range/Units 17:25 13:57 13:18 WBC (4.0-10.5) x10^3/uL RBC (4.1-5.4) x10^6/uL Hgb (12.0-16.0) g/dL Hct (35-47) % MCV (78-100) fL MCH (26-32) pg MCHC (32-36) g/dL RDW (11.5-14.0) % Plt Count (150-450) x10^3/uL MPV (7.5-11.0) fL Gran % (36.0-66.0) % Immature Gran % (Auto) (0.00-0.4) % Nucleat RBC Rel Count (0.00-0.1) % Eos # (Auto) (0-0.5) x10^3/uL Immature Gran # (Auto) (0.00-0.03) x10^3u/L Absolute Lymphs (auto) (1.0-4.6) x10^3/uL Absolute Monos (auto) (0.0-1.3) x10^3/uL Absolute Nucleated RBC (0.00-0.01) x10^3u/L Lymphocytes % (24.0-44.0) % Monocytes % (0.0-12.0) % Eosinophils % (0.00-5.0) % Basophils % (0.0-0.4) % Absolute Granulocytes (1.4-6.9) x10^3/uL Basophils # (0-0.4) x10^3/uL Sodium (135-145) mmol/L Potassium (3.5-5.1) mmol/L Chloride (98-107) mmol/L Carbon Dioxide (22-30) mmol/L Anion Gap (5-15) MEQ/L BUN (7-17) mg/dL Creatinine (0.52-1.04) mg/dL Estimated GFR ML/MIN Glucose (74-106) mg/dL Lactic Acid (0.4-2.0) Calcium (8.4-10.2) mg/dL Magnesium 1.8 (1.6-2.3) mg/dL Total Bilirubin (0.2-1.3) mg/dL AST (14-36) U/L ALT (0-35) U/L Alkaline Phosphatase (38-126) U/L Troponin I < 0.012 (0.000-0.033) ng/mL Serum Total Protein (6.3-8.2) g/dL Albumin (3.5-5.0) g/dL Lipase (23-300) U/L Urine Color Dark Yellow A (Yellow) Urine Appearance Cloudy A (Clear) Urine pH 6.5 (4.6-8.0) Ur Specific [place] 1.025 (1.005-1.030) Urine Protein 30 (Negative) Urine Glucose (UA) Negative (Negative) mg/dL Urine Ketones Trace A (Negative) Urine Blood Trace (Negative) Urine Nitrite Negative (Negative) Urine Bilirubin Moderate A (Negative) Urine Urobilinogen 1.0 A (0.2) mg/dL Ur Leukocyte Esterase Large A (Negative) U Hyaline Cast (Auto) 3-5 A (0-2) /LPF Urine Microscopic RBC 11-20 A (0-5) /HPF Urine Microscopic WBC >100 A (0-5) /HPF Ur Epithelial Cells Moderate A (None Seen) /HPF Urine Bacteria Rare A (None Seen) /HPF Urine Yeast (Budding) Few A (None Seen) /HPF Urine Culture Reflexed YES (NO) C. difficile Screen (NEGATIVE) C.difficile 027-NAP1-B1 (NEGATIVE) 10/24/23 10/24/23 10/24/23 Range/Units 13:16 13:16 13:00 WBC 7.4 (4.0-10.5) x10^3/uL RBC 4.17 (4.1-5.4) x10^6/uL Hgb 12.1 (12.0-16.0) g/dL Hct 36.7 (35-47) % MCV 88.0 (78-100) fL MCH 29.0 (26-32) pg MCHC 33.0 (32-36) g/dL RDW 13.2 (11.5-14.0) % Plt Count 255 (150-450) x10^3/uL MPV 10.8 (7.5-11.0) fL Gran % 69.5 H (36.0-66.0) % Immature Gran % (Auto) 0.3 (0.00-0.4) % Nucleat RBC Rel Count 0.0 (0.00-0.1) % Eos # (Auto) 0.15 (0-0.5) x10^3/uL Immature Gran # (Auto) 0.02 (0.00-0.03) x10^3u/L Absolute Lymphs (auto) 1.45 (1.0-4.6) x10^3/uL Absolute Monos (auto) 0.62 (0.0-1.3) x10^3/uL Absolute Nucleated RBC 0.00 (0.00-0.01) x10^3u/L Lymphocytes % 19.5 L (24.0-44.0) % Monocytes % 8.3 (0.0-12.0) % Eosinophils % 2.0 (0.00-5.0) % Basophils % 0.4 (0.0-0.4) % Absolute Granulocytes 5.17 (1.4-6.9) x10^3/uL Basophils # 0.03 (0-0.4) x10^3/uL Sodium (135-145) mmol/L Potassium (3.5-5.1) mmol/L Chloride (98-107) mmol/L Carbon Dioxide (22-30) mmol/L Anion Gap (5-15) MEQ/L BUN (7-17) mg/dL Creatinine (0.52-1.04) mg/dL Estimated GFR ML/MIN Glucose (74-106) mg/dL Lactic Acid 1.0 (0.4-2.0) Calcium (8.4-10.2) mg/dL Magnesium (1.6-2.3) mg/dL Total Bilirubin (0.2-1.3) mg/dL AST (14-36) U/L ALT (0-35) U/L Alkaline Phosphatase (38-126) U/L Troponin I < 0.012 (0.000-0.033) ng/mL Serum Total Protein (6.3-8.2) g/dL Albumin (3.5-5.0) g/dL Lipase (23-300) U/L Urine Color (Yellow) Urine Appearance (Clear) Urine pH (4.6-8.0) Ur Specific [place] (1.005-1.030) Urine Protein (Negative) Urine Glucose (UA) (Negative) mg/dL Urine Ketones (Negative) Urine Blood (Negative) Urine Nitrite (Negative) Urine Bilirubin (Negative) Urine Urobilinogen (0.2) mg/dL Ur Leukocyte Esterase (Negative) U Hyaline Cast (Auto) (0-2) /LPF Urine Microscopic RBC (0-5) /HPF Urine Microscopic WBC (0-5) /HPF Ur Epithelial Cells (None Seen) /HPF Urine Bacteria (None Seen) /HPF Urine Yeast (Budding) (None Seen) /HPF Urine Culture Reflexed (NO) C. difficile Screen (NEGATIVE) C.difficile 027-[id number] (NEGATIVE) 10/24/23 10/24/23 Range/Units 13:00 10:34 WBC (4.0-10.5) x10^3/uL RBC (4.1-5.4) x10^6/uL Hgb (12.0-16.0) g/dL Hct (35-47) % MCV (78-100) fL MCH (26-32) pg MCHC (32-36) g/dL RDW (11.5-14.0) % Plt Count (150-450) x10^3/uL MPV (7.5-11.0) fL Gran % (36.0-66.0) % Immature Gran % (Auto) (0.00-0.4) % Nucleat RBC Rel Count (0.00-0.1) % Eos # (Auto) (0-0.5) x10^3/uL Immature Gran # (Auto) (0.00-0.03) x10^3u/L Absolute Lymphs (auto) (1.0-4.6) x10^3/uL Absolute Monos (auto) (0.0-1.3) x10^3/uL Absolute Nucleated RBC (0.00-0.01) x10^3u/L Lymphocytes % (24.0-44.0) % Monocytes % (0.0-12.0) % Eosinophils % (0.00-5.0) % Basophils % (0.0-0.4) % Absolute Granulocytes (1.4-6.9) x10^3/uL Basophils # (0-0.4) x10^3/uL Sodium 139 (135-145) mmol/L Potassium 2.4 L* (3.5-5.1) mmol/L Chloride 103 (98-107) mmol/L Carbon Dioxide 30 (22-30) mmol/L Anion Gap 8.4 (5-15) MEQ/L BUN 11 (7-17) mg/dL Creatinine 0.72 (0.52-1.04) mg/dL Estimated GFR 91.0 ML/MIN Glucose 115 H (74-106) mg/dL Lactic Acid (0.4-2.0) Calcium 9.6 (8.4-10.2) mg/dL Magnesium (1.6-2.3) mg/dL Total Bilirubin 0.90 (0.2-1.3) mg/dL AST 33 (14-36) U/L ALT 22 (0-35) U/L Alkaline Phosphatase 109 (38-126) U/L Troponin I (0.000-0.033) ng/mL Serum Total Protein 7.2 (6.3-8.2) g/dL Albumin 4.1 (3.5-5.0) g/dL Lipase 81 (23-300) U/L Urine Color (Yellow) Urine Appearance (Clear) Urine pH (4.6-8.0) Ur Specific [place] (1.005-1.030) Urine Protein (Negative) Urine Glucose (UA) (Negative) mg/dL Urine Ketones (Negative) Urine Blood (Negative) Urine Nitrite (Negative) Urine Bilirubin (Negative) Urine Urobilinogen (0.2) mg/dL Ur Leukocyte Esterase (Negative) U Hyaline Cast (Auto) (0-2) /LPF Urine Microscopic RBC (0-5) /HPF Urine Microscopic WBC (0-5) /HPF Ur Epithelial Cells (None Seen) /HPF Urine Bacteria (None Seen) /HPF Urine Yeast (Budding) (None Seen) /HPF Urine Culture Reflexed (NO) C. difficile Screen NEGATIVE (NEGATIVE) C.difficile 027-[id number] PRESUMPTIVE NEGATIVE (NEGATIVE) - Progress Progress: pain not gone completely, re-examined Progress Note: 10/24/23 15:45 68 years old is evaluated for abdominal pain with nausea diarrhea and 1 episode of vomiting. This has been going on for 2 weeks. Patient has mild diffuse tenderness but more in the right lower quadrant. She is given fluids and symp tomatic treatment, on reevaluation she is feeling much better. Workup showed normal white count, potassium of 2.4 and a magnesium of 1.8, started on oral and IV replacement of potassium. Patient does have a UTI and CT consistent with cecum/ascending colitis. Given dose of Levaquin and Flagyl. EKG is sinus rhythm with no acute ST elevations and negative troponins. I believe patient's low potassium is secondary to diarrhea and being on Lasix. Discussed the results of workup with patient and family, recommended observation admission which they agreed. I have discussed with Dr. Díaz hospitalist on-call, reviewed history, workup and agreed with admission. Discussed with DrCodie: Other () Counseled pt/family regarding: lab results, diagnosis, need for follow-up, rad results Medical Desision Making - Independent Historian Additional History obtained from: Family - Discussion of managment Care discussed with:: hospitalist Reviewed:: Test results Agreed on:: Treatment plan, place in obs Will see patient: in hospital - Diagnostic Testing Diagnostic test were ordered, analyzed, and reviewed by me: Yes Radiological Interpretation: Reviewed by me, Teleradiologist Report - Risk of complications The pt has a mod risk of morbidity or mortality based on: Need for prescription drug management The pt has a high risk of morbidity or mortality based on: Decision regarding hospitilization or escalation of hosp level of care - Departure Departure Disposition: Observation Clinical Impression: Infectious colitis, Hypokalemia Condition: Stable Critical Care Time: No
[2023-10-24 13:28] LABS: Absolute Neutrophil Ct (ANC) 5.17 x10^3/uL (1.4-6.9); BASOPHIL % 0.4 % (0.0-0.4); Basophil (Absolute #) 0.03 x10^3/uL (0-0.4); Eosinophil (Absolute #) 0.15 x10^3/uL (0-0.5); Hematocrit 36.7 % (35-47); Hemoglobin 12.1 g/dL (12.0-16.0); IMMATURE GRAN # 0.02 x10^3u/L (0.00-0.03); IMMATURE GRAN % 0.3 % (0.00-0.4); Lymphocyte (Absolute #) 1.45 x10^3/uL (1.0-4.6); Lymphocytes % 19.5 % (24.0-44.0); Mean Platelet Volume 10.8 fL (7.5-11.0); Monocyte (Absolute #) 0.62 x10^3/uL (0.0-1.3); Monocytes % 8.3 % (0.0-12.0); Neutrophil % 69.5 % (36.0-66.0); Platelet Count 255 x10^3/uL (150-450); Red Blood Count 4.17 x10^6/uL (4.1-5.4); Red Cell Distribution Width 13.2 % (11.5-14.0); White Blood Count 7.4 x10^3/uL (4.0-10.5)
[2023-10-24] MEDS: Sodium Chloride 0.9% 500 ML 500 ML IV ONE (13:28)
[2023-10-24 13:47] LABS: ALBUMIN 4.1 g/dL (3.5-5.0); ANION GAP 8.4 MEQ/L (5-15); BILIRUBIN,TOTAL 0.9 mg/dL (0.2-1.3); Calcium 9.6 mg/dL (8.4-10.2); Creatinine 1 0.72 mg/dL (0.52-1.04); Total Protein 7.2 g/dL (6.3-8.2)
[2023-10-24 13:49] LABS: Potassium 2.4 mmol/L (3.5-5.1)
[2023-10-24 14:02] LABS: ADD URINE CULTURE? YES (NO); Appearance Cloudy (Clear); Bacteria Rare /HPF (None Seen); Bilirubin Moderate (Negative); Blood Trace (Negative); Budding Yeast Few /HPF (None Seen); Epithelial Cells Moderate /HPF (None Seen); Glucose, Urine Negative (Negative); Ketones Trace (Negative); Leukocyte Esterase Large (Negative); Nitrite Negative (Negative); Ph 6.5 (4.6-8.0); Protein,Urine Dip 30 (Negative); Specific Gravity 1.025 (1.005-1.030); WBC >100 /HPF (0-5)
[2023-10-24] MEDS ORDERED: Sodium Chloride 0.9% 1000 ML 1,000 ML ONE (14:04)
[2023-10-24] MEDS ORDERED: POTASSIUM CHLORIDE 20 mEq IN WATER 100ML 100 ML IV ONE ×2 (14:04→15:43)
[2023-10-24] MEDS ORDERED: Klor Con ONE (14:04)
[2023-10-24] MEDS: Klor Con PO ONE (14:09)
[2023-10-24] MEDS: Sodium Chloride 0.9% 1000 ML 1,000 ML IV SCH ×2 (14:10→18:46)
[2023-10-24] MEDS: POTASSIUM CHLORIDE 20 mEq IN WATER 100ML 20 MEQ/100 ML BAG IV SCH (14:10)
--- NOTE | 2023-10-24 14:45 | XRAY ---
CLINICAL HISTORY: upper abd pain COMPARISON: None. TECHNIQUE: A CT scan of the abdomen and pelvis was performed without IV contrast. Coronal and sagittal reconstructive images were also obtained. One of the following dose reduction techniques was utilized for this exam.Automated exposure control, adjustment of the mA and/or kV according to patient size, and use of iterative reconstruction. FINDINGS: Limited organ parenchymal evaluation within the limitations of non-contrast study. A scan through the lower chest reveals bilateral lung basal subpleural atelectatic plates. Abdomen: The liver is of average size and measures 16.5 cm. No focal or diffuse parenchymal abnormality. The intrahepatic biliary radicals and the bile ducts are normal. The gallbladder is distended and shows no definite stones. There is no evidence of wall thickening/ pericholecystic collection. The pancreas appears preserved. No peripancreatic fat stranding, pancreatic pseudocyst, or peripancreatic fluid collection. Spleen normal in size, no mass seen. Both adrenal glands are unremarkable. The kidneys are normal in size and shape. No calculi or hydronephrosis. Circumaortic left renal vein (normal variant). Small sliding hiatal hernia (type I). The stomach and the visualized small bowel loops are unremarkable. Mild edema of the caecum and ascending colonic wall with related some fat stranding. No evidence of bowel obstruction. The appendix was not clearly visualized however no CT evidence of acute appendicitis. The transverse colon, the descending colon, and the rectosigmoid colon are unremarkable. There is no evidence of significant mesenteric or retroperitoneal lymph node enlargement. No free fluid. Pelvis: The urinary bladder is unremarkable. Status post hysterectomy. The pelvic vasculature is unremarkable. No evidence of pelvic lymphadenopathy. Degenerative changes in the visualized spine. IMPRESSION: Mild caecum and ascending colonic wall edema with related some fat stranding. This could suggest mild inflammatory/infectious etiology. Correlate clinically and if needed, follow-up is advsied. Small sliding hiatal hernia (type I). [facility] ER was called at [phone] at 01:40 PM CASINO ATTENDANT, 10/24/2023 and results were verbally communicated to Dr. Mcdonald Electronically Signed by: Coco Bartlett MD. (10/24/2023 14:42:16 EDT)
[2023-10-24] MEDS ORDERED: FLAGYL 500 MG IVPB 500 MG/100 ML BAG IV ONE (15:08)
[2023-10-24] MEDS: FLAGYL 500 MG IVPB 500 MG/100 ML BAG IV STA (15:09)
[2023-10-24] MEDS ORDERED: LEVOFLOXACIN 750MG/150ML D5W 750 MG/150 ML BAG IV ONE (15:43)
[2023-10-24] MEDS: LEVOFLOXACIN 750MG/150ML D5W 750 MG/150 ML BAG IV STA (15:44)
[2023-10-24] MEDS: Compazine 10 MG/2 ML IV PRN (17:00)
--- NOTE | 2023-10-24 18:19 | PCM.HP ---
History of Present Illness - Chief Complaint Chief Complaint: Hypokalemia, infectious colitis Date: 10/24/23 History of Present Illness: is a 68 year old female with a pmhx of CAD, HLD, HTN, and hypothyroidism presented to ED 10/24/23 with complaints of abdominal pain, nausea with vomiting, and diarrhea. Patient reports that she was in her usual state of health until about three weeks ago when she started experiencing nausea off and on. In the last two weeks she reports that symptoms have progressed to nausea with episodes of vomiting, epigastric pain, and diarrhea (> 4 BMs per day). Denies fever, chills, hematuria, dysuria, flank pain, cough, hematochezia, sob, cp, MORRIS, dizziness. In ED, vitals stable. CT of the abdomen demonstrating mild caecum and ascending colonic wall edema with related some fat stranding suggestive of mild inflammatory/infectious etiology. Lab findings remarkable for hypokalemia with potassium at 2.4 and urinalysis suggestive of UTI. Patient given 80 meq in ED with the last 20meqs currently running as well as levaquin and flagyl. The entirety of this encounter was performed via Telemedicine" This visit was performed using real-time audio and video connection between my location and thepatients locationwith the assistance of a surrogateat the patients location. Written or verbal consent was obtained from the patient/guardian to perform this visit [email or web address] technology. Any patient questions regarding the telemedicine interaction were answered. - Review of Systems Constitutional: Weakness Eyes: No Symptoms Ears, Nose, & Throat: No Symptoms Respiratory: No Symptoms Cardiac: No Symptoms Abdominal/Gastrointestinal: Abdominal Pain, Nausea, Vomiting, Diarrhea Genitourinary Symptoms: No Symptoms Musculoskeletal: No Symptoms Skin: No Symptoms Neurological: No Symptoms Psychological: No Symptoms Endocrine: No Symptoms Hematologic/Lymphatic: No Symptoms Immunological/Allergic: No Symptoms Medications & Allergies Home Medications: Home Medication List ALPRAZolam [Alprazolam] 0.5 mg PO TID PRN PRN 06/26/21 [History Confirmed 10/24/23] Atorvastatin Calcium 80 mg PO DAILY 06/26/21 [History Confirmed 10/24/23] hydroCHLOROthiazide [Hydrochlorothiazide] 50 mg PO DAILY 06/26/21 [History Confirmed 10/24/23] Amlodipine Besylate 5 mg [Norvasc 5 mg] 2.5 mg PO HS 09/28/22 [History Confirmed 10/24/23] Aspirin EC 81 mg [Ecotrin 81 mg] 1 tab PO DAILY 09/28/22 [History C onfirmed 10/24/23] Levothyroxine Sodium 25 Mcg [Synthroid 25 Mcg] 25 mcg PO DAILY 09/28/22 [History Confirmed 10/24/23] Ascorbic Acid/Collagen Hydr [Collagen Plus Vit C Capsule] 2,500 mg PO DAILY 10/24/23 [History Confirmed 10/24/23] Dextroamphetamine/Amphetamine [Dextroamp-Amphetamine 5 mg Tab] 5 mg PO BID 10/24/23 [History Confirmed 10/24/23] Furosemide 20 mg [Lasix 20 mg] 20 mg PO DAILY 10/24/23 [History Confirmed 10/24/23] Losartan Potassium 25 mg PO DAILY 10/24/23 [History Confirmed 10/24/23] Sertraline HCl [Zoloft] 100 mg PO HS 10/24/23 [History Confirmed 10/24/23] Vitamin D3/Soy Isoflavone [Iso D3 2,000 Unit Tablet] 2,000 units PO DAILY 10/24/23 [History Confirmed 10/24/23] Allergies/Adverse Reactions: Allergies Allergy/AdvReac Type Severity Reaction Status Date / Time No Known Drug Allergies Allergy Verified 10/24/23 16:40 - Past Medical History Past Medical History: Yes Neurological History: No Pertinent History ENT History: Cataracts Cardiac History: Arrhythmia, Coronary Artery Disease, Myocardial Infarction ( PR), High Cholesterol, Hypertension Respiratory History: No Pertinent History Endocrine Medical History: Hypothyroidism Musculoskelatal History: Arthritis, Osteoarthritis GI Medical History: No Pertinent History History: No Pertinent History Pyscho-Social History: Depression, Anxiety Reproductive Disorders: Fibroids Comment: SILENT PR, rheumatic fever, heart murmur, anemia - Female History Are you now?: No - Past Surgical History Past Surgical History: Yes Neuro Surgical History: No Pertinent History Cardiac History: Cardiac Catheterization Respiratory Surgery: No Pertinent History GI Surgical History: No Pertinent History Genitourinary Surgical Hx: No Pertinent History Musculskeletal Surgical Hx: Joint Replacement Female Surgical History: Hysterectomy, Tubal Ligation Other Surgical History: maico knee replaced - Social History Smoking Status: Former smoker How long have you smoked: 10 years Exposure to second hand smoke: Yes Alcohol: Occasionally Drug Use: none - Social Determinants of Health Will the patient participate in the screening: Yes Do you worry about a steady place to live?: No Do you have any problems with any of the following?: No known problems In the past 12 months,have you had to go without utilities?: No Have you or anyone in your house had to go without enough: No Transportation Issues: No Has anyone in your support network made you feel unsafe?: No Does the patient want assistance with any of the above?: No - Physical Exam Vital Signs: Vital Signs - 24 hr Temp Pulse Resp BP BP Pulse Ox 10/24/23 16:21 96 10/24/23 16:08 97.5 F 56 L 18 133/68 95 10/24/23 16:00 18 10/24/23 15:48 96 10/24/23 15:00 50 L 17 121/70 96 10/24/23 14:30 60 13 114/61 91 L 10/24/23 14:11 53 L 22 118/72 96 10/24/23 13:30 54 L 21 125/70 95 10/24/23 12:58 97.3 F 61 18 152/86 96 General Appearance: no apparent distress Neurologic Exam: alert, oriented x 3, cooperative Eye Exam: PERRL/EOMI Ears, Nose, Throat Exam: dry mucous membranes Neck Exam: normal inspection, full range of motion Respiratory Exam: normal breath sounds, lungs clear Cardiovascular Exam: regular rate/rhythm, normal heart sounds Gastrointestinal/Abdomen Exam: soft, other (hyperactive BS x 4 quads) Pelvic Exam: not done Rectal Exam: deferred Back Exam: normal inspection Extremity Exam: normal inspection Skin Exam: normal color Results - Labs Lab/Micro Results: Lab Results-Last 24 Hours 10/24/23 10/24/23 10/24/23 Range/Units 13:00 13:00 13:16 WBC 7.4 (4.0-10.5) x10^3/uL RBC 4.17 (4.1-5.4) x10^6/uL Hgb 12.1 (12.0-16.0) g/dL Hct 36.7 (35-47) % MCV 88.0 (78-100) fL MCH 29.0 (26-32) pg MCHC 33.0 (32-36) g/dL RDW 13.2 (11.5-14.0) % Plt Count 255 (150-450) x10^3/uL MPV 10.8 (7.5-11.0) fL Gran % 69.5 H (36.0-66.0) % Immature Gran % (Auto) 0.3 (0.00-0.4) % Nucleat RBC Rel Count 0.0 (0.00-0.1) % Eos # (Auto) 0.15 (0-0.5) x10^3/uL Immature Gran # (Auto) 0.02 (0.00-0.03) x10^3u/L Absolute Lymphs (auto) 1.45 (1.0-4.6) x10^3/uL Absolute Monos (auto) 0.62 (0.0-1.3) x10^3/uL Absolute Nucleated RBC 0.00 (0.00-0.01) x10^3u/L Lymphocytes % 19.5 L (24.0-44.0) % Monocytes % 8.3 (0.0-12.0) % Eosinophils % 2.0 (0.00-5.0) % Basophils % 0.4 (0.0-0.4) % Absolute Granulocytes 5.17 (1.4-6.9) x10^3/uL Basophils # 0.03 (0-0.4) x10^3/uL Sodium 139 (135-145) mmol/L Potassium 2.4 L* (3.5-5.1) mmol/L Chloride 103 (98-107) mmol/L Carbon Dioxide 30 (22-30) mmol/L Anion Gap 8.4 (5-15) MEQ/L BUN 11 (7-17) mg/dL Creatinine 0.72 (0.52-1.04) mg/dL Estimated GFR 91.0 ML/MIN Glucose 115 H (74-106) mg/dL Lactic Acid (0.4-2.0) Calcium 9.6 (8.4-10.2) mg/dL Magnesium (1.6-2.3) mg/dL Total Bilirubin 0.90 (0.2-1.3) mg/dL AST 33 (14-36) U/L ALT 22 (0-35) U/L Alkaline Phosphatase 109 (38-126) U/L Troponin I < 0.012 (0.000-0.033) ng/mL Serum Total Protein 7.2 (6.3-8.2) g/dL Albumin 4.1 (3.5-5.0) g/dL Lipase 81 (23-300) U/L Urine Color (Yellow) Urine Appearance (Clear) Urine pH (4.6-8.0) Ur Specific [place] (1.005-1.030) Urine Protein (Negative) Urine Glucose (UA) (Negative) mg/dL Urine Ketones (Negative) Urine Blood (Negative) Urine Nitrite (Negative) Urine Bilirubin (Negative) Urine Urobilinogen (0.2) mg/dL Ur Leukocyte Esterase (Negative) U Hyaline Cast (Auto) (0-2) /LPF Urine Microscopic RBC (0-5) /HPF Urine Microscopic WBC (0-5) /HPF Ur Epithelial Cells (None Seen) /HPF Urine Bacteria (None Seen) /HPF Urine Yeast (Budding) (None Seen) /HPF Urine Culture Reflexed (NO) 10/24/23 10/24/23 10/24/23 Range/Units 13:16 13:18 13:57 WBC (4.0-10.5) x10^3/uL RBC (4.1-5.4) x10^6/uL Hgb (12.0-16.0) g/dL Hct (35-47) % MCV (78-100) fL MCH (26-32) pg MCHC (32-36) g/dL RDW (11.5-14.0) % Plt Count (150-450) x10^3/uL MPV (7.5-11.0) fL Gran % (36.0-66.0) % Immature Gran % (Auto) (0.00-0.4) % Nucleat RBC Rel Count (0.00-0.1) % Eos # (Auto) (0-0.5) x10^3/uL Immature Gran # (Auto) (0.00-0.03) x10^3u/L Absolute Lymphs (auto) (1.0-4.6) x10^3/uL Absolute Monos (auto) (0.0-1.3) x10^3/uL Absolute Nucleated RBC (0.00-0.01) x10^3u/L Lymphocytes % (24.0-44.0) % Monocytes % (0.0-12.0) % Eosinophils % (0.00-5.0) % Basophils % (0.0-0.4) % Absolute Granulocytes (1.4-6.9) x10^3/uL Basophils # (0-0.4) x10^3/uL Sodium (135-145) mmol/L Potassium (3.5-5.1) mmol/L Chloride (98-107) mmol/L Carbon Dioxide (22-30) mmol/L Anion Gap (5-15) MEQ/L BUN (7-17) mg/dL Creatinine (0.52-1.04) mg/dL Estimated GFR ML/MIN Glucose (74-106) mg/dL Lactic Acid 1.0 (0.4-2.0) Calcium (8.4-10.2) mg/dL Magnesium 1.8 (1.6-2.3) mg/dL Total Bilirubin (0.2-1.3) mg/dL AST (14-36) U/L ALT (0-35) U/L Alkaline Phosphatase (38-126) U/L Troponin I (0.000-0.033) ng/mL Serum Total Protein (6.3-8.2) g/dL Albumin (3.5-5.0) g/dL Lipase (23-300) U/L Urine Color Dark Yellow A (Yellow) Urine Appearance Cloudy A (Clear) Urine pH 6.5 (4.6-8.0) Ur Specific [place] 1.025 (1.005-1.030) Urine Protein 30 (Negative) Urine Glucose (UA) Negative (Negative) mg/dL Urine Ketones Trace A (Negative) Urine Blood Trace (Negative) Urine Nitrite Negative (Negative) Urine Bilirubin Moderate A (Negative) Urine Urobilinogen 1.0 A (0.2) mg/dL Ur Leukocyte Esterase Large A (Negative) U Hyaline Cast (Auto) 3-5 A (0-2) /LPF Urine Microscopic RBC 11-20 A (0-5) /HPF Urine Microscopic WBC >100 A (0-5) /HPF Ur Epithelial Cells Moderate A (None Seen) /HPF Urine Bacteria Rare A (None Seen) /HPF Urine Yeast (Budding) Few A (None Seen) /HPF Urine Culture Reflexed YES (NO) 10/24/23 Range/Units 17:25 WBC (4.0-10.5) x10^3/uL RBC (4.1-5.4) x10^6/uL Hgb (12.0-16.0) g/dL Hct (35-47) % MCV (78-100) fL MCH (26-32) pg MCHC (32-36) g/dL RDW (11.5-14.0) % Plt Count (150-450) x10^3/uL MPV (7.5-11.0) fL Gran % (36.0-66.0) % Immature Gran % (Auto) (0.00-0.4) % Nucleat RBC Rel Count (0.00-0.1) % Eos # (Auto) (0-0.5) x10^3/uL Immature Gran # (Auto) (0.00-0.03) x10^3u/L Absolute Lymphs (auto) (1.0-4.6) x10^3/uL Absolute Monos (auto) (0.0-1.3) x10^3/uL Absolute Nucleated RBC (0.00-0.01) x10^3u/L Lymphocytes % (24.0-44.0) % Monocytes % (0.0-12.0) % Eosinophils % (0.00-5.0) % Basophils % (0.0-0.4) % Absolute Granulocytes (1.4-6.9) x10^3/uL Basophils # (0-0.4) x10^3/uL Sodium (135-145) mmol/L Potassium (3.5-5.1) mmol/L Chloride (98-107) mmol/L Carbon Dioxide (22-30) mmol/L Anion Gap (5-15) MEQ/L BUN (7-17) mg/dL Creatinine (0.52-1.04) mg/dL Estimated GFR ML/MIN Glucose (74-106) mg/dL Lactic Acid (0.4-2.0) Calcium (8.4-10.2) mg/dL Magnesium (1.6-2.3) mg/dL Total Bilirubin (0.2-1.3) mg/dL AST (14-36) U/L ALT (0-35) U/L Alkaline Phosphatase (38-126) U/L Troponin I < 0.012 (0.000-0.033) ng/mL Serum Total Protein (6.3-8.2) g/dL Albumin (3.5-5.0) g/dL Lipase (23-300) U/L Urine Color (Yellow) Urine Appearance (Clear) Urine pH (4.6-8.0) Ur Specific [place] (1.005-1.030) Urine Protein (Negative) Urine Glucose (UA) (Negative) mg/dL Urine Ketones (Negative) Urine Blood (Negative) Urine Nitrite (Negative) Urine Bilirubin (Negative) Urine Urobilinogen (0.2) mg/dL Ur Leukocyte Esterase (Negative) U Hyaline Cast (Auto) (0-2) /LPF Urine Microscopic RBC (0-5) /HPF Urine Microscopic WBC (0-5) /HPF Ur Epithelial Cells (None Seen) /HPF Urine Bacteria (None Seen) /HPF Urine Yeast (Budding) (None Seen) /HPF Urine Culture Reflexed (NO) - Radiology Impressions Radiology Exams & Impressions: Radiology Procedures Category Date Time Status ABDOMEN AND PELVIS W/0 CONTRAS [CT] Stat Exams 10/24/23 13:16 Completed Assessment/Plan (1) Infectious colitis Current Visit: Yes Status: Acute Assessment & Plan: -CT demonstrating mild caecum and ascending colonic wall edema with related some fat stranding. This could suggest mild inflammatory/infectious etiology -Stool for cdiff, culture, O&P, giardia -NPO -anti -emetics -hold immodium until stool studies complete -probiotic Code(s): A09 - INFECTIOUS GASTROENTERITIS AND COLITIS, UNSPECIFIED (2) UTI (urinary tract infection) Current Visit: Yes Status: Acute Assessment & Plan: -UA reviewed, suspicious for UTI, Levaquin given in ED, will continue, follow culture Code(s): N39.0 - URINARY TRACT INFECTION, SITE NOT SPECIFIED (3) HTN (hypertension) Current Visit: Yes Status: Acute Assessment & Plan: -stable- will continue home meds Code(s): I10 - ESSENTIAL (PRIMARY) HYPERTENSION (4) HLD (hyperlipidemia) Current Visit: Yes Status: Acute Assessment & Plan: -continue statin Code(s): E78.5 - HYPERLIPIDEMIA, UNSPECIFIED (5) CAD (coronary artery disease) Current Visit: Yes Status: Acute Assessment & Plan: -Follows with Dr. Lopez, h/o silent PR, will continue home meds - hold diuretics Code(s): I25.10 - ATHSCL HEART DISEASE OF [place] CORONARY ARTERY W/O ANG PCTRS (6) Hypokalemia Current Visit: Yes Status: Acute Assessment & Plan: -Received 80meq in ED, will recheck and replenish as appropriate -Hold diuretics -Monitor renal/lytes -tele Code(s): E87.6 - HYPOKALEMIA (7) Hypothyroid Current Visit: Yes Status: Acute Assessment & Plan: -continue home meds VTE: bilateral scd PPI: protonix Dispo: 1-2 days Code status: Full code Code(s): E03.9 - HYPOTHYROIDISM, UNSPECIFIED Telemedicine Encounter - Telemedicine Encounter Telemedicine Encounter: The entirety of this encounter was performed via Telemedicine"
[2023-10-24] MEDS ORDERED: MORPHINE SULFATE 2 MG INJ IV PRN (18:40)
[2023-10-24] MEDS ORDERED: Sodium Chloride 0.9% 1000 ML 1,000 ML IV SCH (18:45)
[2023-10-24] MEDS: PROTONIX 40 MG IV IV SCH (18:58)
[2023-10-24] MEDS: ZOLOFT 50 MG TABLET PO SCH (21:04)
[2023-10-24] MEDS: NORVASC 5 MG PO SCH (21:05)
[2023-10-24] MEDS ORDERED: AMPHETAMINE PO SCH (22:00)
[2023-10-24] MEDS ORDERED: DEXTROAMPHETAMINE PO SCH (22:00)
[2023-10-24] MEDS ORDERED: [UNRECOGNIZED DRUG - OTHER] PO SCH (22:00)
[2023-10-24] MEDS ORDERED: NON-FORMULARY ITEM (Sertraline Hcl [Zoloft] 100 MG Tablet) PO SCH (22:00)
[2023-10-24] MEDS: xanAX 0.5 MG PO PRN (23:29)
[2023-10-25 04:30] LABS: Absolute Neutrophil Ct (ANC) 3.83 x10^3/uL (1.4-6.9); BASOPHIL % 0.5 % (0.0-0.4); Basophil (Absolute #) 0.03 x10^3/uL (0-0.4); Eosinophil (Absolute #) 0.12 x10^3/uL (0-0.5); Hematocrit 30.2 % (35-47); Hemoglobin 10.1 g/dL (12.0-16.0); IMMATURE GRAN # 0.02 x10^3u/L (0.00-0.03); IMMATURE GRAN % 0.3 % (0.00-0.4); Lymphocyte (Absolute #) 1.45 x10^3/uL (1.0-4.6); Mean Cell Volume 89.9 fL (78-100); Mean Corpuscular Hemoglobin 30.1 pg (26-32); Mean Corpuscular Hgb Concent. 33.4 g/dL (32-36); Mean Platelet Volume 10.7 fL (7.5-11.0); Monocyte (Absolute #) 0.59 x10^3/uL (0.0-1.3); Monocytes % 9.8 % (0.0-12.0); Neutrophil % 63.4 % (36.0-66.0); Platelet Count 197 x10^3/uL (150-450); Red Blood Count 3.36 x10^6/uL (4.1-5.4); Red Cell Distribution Width 13.4 % (11.5-14.0)
[2023-10-25 04:59] LABS: ALBUMIN 3.2 g/dL (3.5-5.0); ANION GAP 7.9 MEQ/L (5-15); BILIRUBIN,TOTAL 0.6 mg/dL (0.2-1.3); Calcium 8.4 mg/dL (8.4-10.2); Creatinine 1 0.65 mg/dL (0.52-1.04); EST GLOMERULAR FILTRATION RATE 95.8 ML/MIN; Total Protein 5.8 g/dL (6.3-8.2)
[2023-10-25] MEDS: Klor Con PO SCH (05:32)
[2023-10-25] MEDS: Magnesium 1 Gm / 100 Ml D5W*** 100 ML IV ONE (05:32)
[2023-10-25] MEDS ORDERED: MEDICATION INTERVENTION MC SCH ×2 (07:00→07:15)
[2023-10-25] MEDS: SYNTHROID 25 MCG PO SCH (07:48)
[2023-10-25] MEDS ORDERED: AMPHETAMINE PO SCH (08:00)
[2023-10-25] MEDS ORDERED: [UNRECOGNIZED DRUG - OTHER] PO SCH (08:00)
[2023-10-25] MEDS ORDERED: DEXTROAMPHETAMINE PO SCH (08:00)
[2023-10-25] MEDS ORDERED: CAPSU PO SCH (10:00)
[2023-10-25] MEDS ORDERED: COLLAGEN HYDR PO SCH (10:00)
[2023-10-25] MEDS ORDERED: NON-FORMULARY ITEM (Losartan Potassium [Losartan Potassium] 25 MG Tablet) PO SCH (10:00)
[2023-10-25] MEDS ORDERED: [UNRECOGNIZED DRUG - OTHER] PO SCH (10:00)
[2023-10-25] MEDS ORDERED: ASCORBIC ACID PO SCH (10:00)
[2023-10-25] MEDS ORDERED: SOY ISOFLAVONE PO SCH (10:00)
[2023-10-25] MEDS ORDERED: LEVOFLOXACIN 750MG/150ML D5W 750 MG/150 ML BAG IV SCH (10:00)
[2023-10-25] MEDS ORDERED: LIPITOR 40MG PO SCH (10:00)
[2023-10-25] MEDS ORDERED: VITAMIN D3 PO SCH (10:00)
[2023-10-25 11:20] LABS: 027 TOX PROD PRESUMPTIVE NEGATIVE (NEGATIVE); TOXIGENIC C. DIFF ORG NEGATIVE (NEGATIVE)
--- NOTE | 2023-10-25 11:47 | PCM.NOTE ---
Date and Time: 10/25/23 1139 Subjective Assessment: is a 68 year old female with a pmhx of CAD, HLD, HTN, and hypothyroidism presented to ED 10/24/23 with complaints of abdominal pain, nausea with vomiting, and diarrhea. Patient reports that she was in her usual state of health until about three weeks ago when she started experiencing nausea off and on. In the last two weeks she reports that symptoms have progressed to nausea with episodes of vomiting, epigastric pain, and diarrhea (> 4 BMs per day). Denies fever, chills, hematuria, dysuria, flank pain, cough, hematochezia, sob, cp, MORRIS, dizziness.In ED, vitals stable. CT of the abdomen demonstrating mild caecum and ascending colonic wall edema with related some fat stranding suggestive of mild inflammatory/infectious etiology. Lab findings remarkable for hypokalemia with potassium at 2.4 and urinalysis suggestive of UTI. Patient given 80 meq in ED with the last 20meqs currently running as well as levaquin and flagyl. 10/25/23: Met with patient bedside. Nausea has improved. No diarrheal episodes since admission. Patient does endorse continued mid epigastric pain and reports this has been going on for about three weeks. Plan for surgery consult today for possible EGD. NPO for now. Denies fever,cough, sob, cp, abdominal pain, MORRIS, dizziness. Denies urinary frequency, dysuria, or hematuria. Potassium low this morning, now WNL at 3.5 after replenishment. - Review of Systems Constitutional: No Symptoms Eyes: No Symptoms Ears, Nose, & Throat: No Symptoms Respiratory: No Symptoms Cardiac: No Symptoms Abdominal/Gastrointestinal: Abdominal Pain, Nausea Genitourinary Symptoms: No Symptoms Musculoskeletal: No Symptoms Skin: No Symptoms Neurological: No Symptoms Psychological: No Symptoms Endocrine: No Symptoms Hematologic/Lymphatic: No Symptoms Immunological/Allergic: No Symptoms Objective Exam General Appearance: no apparent distress Neurologic Exam: alert, oriented x 3, cooperative Skin Exam: normal color Eye Exam: PERRL Ears, Nose, Throat Exam: normal ENT inspection Neck Exam: normal inspection Respiratory Exam: normal breath sounds, lungs clear Cardiovascular Exam: regular rate/rhythm, normal heart sounds Gastrointestinal/Abdomen Exam: soft, normal bowel sounds, tenderness (TTP mid epigastric) Extremity Exam: normal inspection Back Exam: normal inspection Objective Data Vital Signs: Vital Signs - 24 hr Temp Pulse Resp BP BP Pulse Ox 10/25/23 07:08 97.0 F 62 18 114/56 96 10/25/23 05:55 98 10/25/23 04:00 97.7 F 56 L 16 123/57 94 L 10/24/23 23:51 98.2 F 65 16 95/61 93 L 10/24/23 21:05 56 L 104/61 10/24/23 19:05 97.8 F 66 16 96/55 92 L 10/24/23 18:59 94 L 10/24/23 16:21 96 10/24/23 16:08 97.5 F 56 L 18 133/68 95 10/24/23 16:00 18 10/24/23 15:48 96 10/24/23 15:00 50 L 17 121/70 96 10/24/23 14:30 60 13 114/61 91 L 10/24/23 14:11 53 L 22 118/72 96 10/24/23 13:30 54 L 21 125/70 95 10/24/23 12:58 97.3 F 61 18 152/86 96 Pain Assessment - Last Documented Pain Intensity 0 Pain Scale Used 0-10 Pain Scale Intake and Output: Intake & Output 10/22/23 10/23/23 10/24/23 10/25/23 11:59 11:59 11:59 11:59 Intake Total 1821 Balance 1821 Weight 71 kg Lab Results: Lab Results-Last 24 Hours 10/24/23 10/24/23 10/24/23 Range/Units 10:34 13:00 13:00 WBC (4.0-10.5) x10^3/uL RBC (4.1-5.4) x10^6/uL Hgb (12.0-16.0) g/dL Hct (35-47) % MCV (78-100) fL MCH (26-32) pg MCHC (32-36) g/dL RDW (11.5-14.0) % Plt Count (150-450) x10^3/uL MPV (7.5-11.0) fL Gran % (36.0-66.0) % Immature Gran % (Auto) (0.00-0.4) % Nucleat RBC Rel Count (0.00-0.1) % Eos # (Auto) (0-0.5) x10^3/uL Immature Gran # (Auto) (0.00-0.03) x10^3u/L Absolute Lymphs (auto) (1.0-4.6) x10^3/uL Absolute Monos (auto) (0.0-1.3) x10^3/uL Absolute Nucleated RBC (0.00-0.01) x10^3u/L Lymphocytes % (24.0-44.0) % Monocytes % (0.0-12.0) % Eosinophils % (0.00-5.0) % Basophils % (0.0-0.4) % Absolute Granulocytes (1.4-6.9) x10^3/uL Basophils # (0-0.4) x10^3/uL Sodium 139 (135-145) mmol/L Potassium 2.4 L* (3.5-5.1) mmol/L Chloride 103 (98-107) mmol/L Carbon Dioxide 30 (22-30) mmol/L Anion Gap 8.4 (5-15) MEQ/L BUN 11 (7-17) mg/dL Creatinine 0.72 (0.52-1.04) mg/dL Estimated GFR 91.0 ML/MIN Glucose 115 H (74-106) mg/dL Lactic Acid (0.4-2.0) Calcium 9.6 (8.4-10.2) mg/dL Magnesium (1.6-2.3) mg/dL Total Bilirubin 0.90 (0.2-1.3) mg/dL AST 33 (14-36) U/L ALT 22 (0-35) U/L Alkaline Phosphatase 109 (38-126) U/L Troponin I < 0.012 (0.000-0.033) ng/mL Serum Total Protein 7.2 (6.3-8.2) g/dL Albumin 4.1 (3.5-5.0) g/dL Lipase 81 (23-300) U/L Urine Color (Yellow) Urine Appearance (Clear) Urine pH (4.6-8.0) Ur Specific [place] (1.005-1.030) Urine Protein (Negative) Urine Glucose (UA) (Negative) mg/dL Urine Ketones (Negative) Urine Blood (Negative) Urine Nitrite (Negative) Urine Bilirubin (Negative) Urine Urobilinogen (0.2) mg/dL Ur Leukocyte Esterase (Negative) U Hyaline Cast (Auto) (0-2) /LPF Urine Microscopic RBC (0-5) /HPF Urine Microscopic WBC (0-5) /HPF Ur Epithelial Cells (None Seen) /HPF Urine Bacteria (None Seen) /HPF Urine Yeast (Budding) (None Seen) /HPF Urine Culture Reflexed (NO) C. difficile Screen NEGATIVE (NEGATIVE) C.difficile 027-NAP1-B1 PRESUMPTIVE NEGATIVE (NEGATIVE) 10/24/23 10/24/23 10/24/23 Range/Units 13:16 13:16 13:18 WBC 7.4 (4.0-10.5) x10^3/uL RBC 4.17 (4.1-5.4) x10^6/uL Hgb 12.1 (12.0-16.0) g/dL Hct 36.7 (35-47) % MCV 88.0 (78-100) fL MCH 29.0 (26-32) pg MCHC 33.0 (32-36) g/dL RDW 13.2 (11.5-14.0) % Plt Count 255 (150-450) x10^3/uL MPV 10.8 (7.5-11.0) fL Gran % 69.5 H (36.0-66.0) % Immature Gran % (Auto) 0.3 (0.00-0.4) % Nucleat RBC Rel Count 0.0 (0.00-0.1) % Eos # (Auto) 0.15 (0-0.5) x10^3/uL Immature Gran # (Auto) 0.02 (0.00-0.03) x10^3u/L Absolute Lymphs (auto) 1.45 (1.0-4.6) x10^3/uL Absolute Monos (auto) 0.62 (0.0-1.3) x10^3/uL Absolute Nucleated RBC 0.00 (0.00-0.01) x10^3u/L Lymphocytes % 19.5 L (24.0-44.0) % Monocytes % 8.3 (0.0-12.0) % Eosinophils % 2.0 (0.00-5.0) % Basophils % 0.4 (0.0-0.4) % Absolute Granulocytes 5.17 (1.4-6.9) x10^3/uL Basophils # 0.03 (0-0.4) x10^3/uL Sodium (135-145) mmol/L Potassium (3.5-5.1) mmol/L Chloride (98-107) mmol/L Carbon Dioxide (22-30) mmol/L Anion Gap (5-15) MEQ/L BUN (7-17) mg/dL Creatinine (0.52-1.04) mg/dL Estimated GFR ML/MIN Glucose (74-106) mg/dL Lactic Acid 1.0 (0.4-2.0) Calcium (8.4-10.2) mg/dL Magnesium (1.6-2.3) mg/dL Total Bilirubin (0.2-1.3) mg/dL AST (14-36) U/L ALT (0-35) U/L Alkaline Phosphatase (38-126) U/L Troponin I (0.000-0.033) ng/mL Serum Total Protein (6.3-8.2) g/dL Albumin (3.5-5.0) g/dL Lipase (23-300) U/L Urine Color Dark Yellow A (Yellow) Urine Appearance Cloudy A (Clear) Urine pH 6.5 (4.6-8.0) Ur Specific [place] 1.025 (1.005-1.030) Urine Protein 30 (Negative) Urine Glucose (UA) Negative (Negative) mg/dL Urine Ketones Trace A (Negative) Urine Blood Trace (Negative) Urine Nitrite Negative (Negative) Urine Bilirubin Moderate A (Negative) Urine Urobilinogen 1.0 A (0.2) mg/dL Ur Leukocyte Esterase Large A (Negative) U Hyaline Cast (Auto) 3-5 A (0-2) /LPF Urine Microscopic RBC 11-20 A (0-5) /HPF Urine Microscopic WBC >100 A (0-5) /HPF Ur Epithelial Cells Moderate A (None Seen) /HPF Urine Bacteria Rare A (None Seen) /HPF Urine Yeast (Budding) Few A (None Seen) /HPF Urine Culture Reflexed YES (NO) C. difficile Screen (NEGATIVE) C.difficile 027-NAP1-B1 (NEGATIVE) 10/24/23 10/24/23 10/24/23 Range/Units 13:57 17:25 21:00 WBC (4.0-10.5) x10^3/uL RBC (4.1-5.4) x10^6/uL Hgb (12.0-16.0) g/dL Hct (35-47) % MCV (78-100) fL MCH (26-32) pg MCHC (32-36) g/dL RDW (11.5-14.0) % Plt Count (150-450) x10^3/uL MPV (7.5-11.0) fL Gran % (36.0-66.0) % Immature Gran % (Auto) (0.00-0.4) % Nucleat RBC Rel Count (0.00-0.1) % Eos # (Auto) (0-0.5) x10^3/uL Immature Gran # (Auto) (0.00-0.03) x10^3u/L Absolute Lymphs (auto) (1.0-4.6) x10^3/uL Absolute Monos (auto) (0.0-1.3) x10^3/uL Absolute Nucleated RBC (0.00-0.01) x10^3u/L Lymphocytes % (24.0-44.0) % Monocytes % (0.0-12.0) % Eosinophils % (0.00-5.0) % Basophils % (0.0-0.4) % Absolute Granulocytes (1.4-6.9) x10^3/uL Basophils # (0-0.4) x10^3/uL Sodium (135-145) mmol/L Potassium (3.5-5.1) mmol/L Chloride (98-107) mmol/L Carbon Dioxide (22-30) mmol/L Anion Gap (5-15) MEQ/L BUN (7-17) mg/dL Creatinine (0.52-1.04) mg/dL Estimated GFR ML/MIN Glucose (74-106) mg/dL Lactic Acid (0.4-2.0) Calcium (8.4-10.2) mg/dL Magnesium 1.8 (1.6-2.3) mg/dL Total Bilirubin (0.2-1.3) mg/dL AST (14-36) U/L ALT (0-35) U/L Alkaline Phosphatase (38-126) U/L Troponin I < 0.012 < 0.012 (0.000-0.033) ng/mL Serum Total Protein (6.3-8.2) g/dL Albumin (3.5-5.0) g/dL Lipase (23-300) U/L Urine Color (Yellow) Urine Appearance (Clear) Urine pH (4.6-8.0) Ur Specific [place] (1.005-1.030) Urine Protein (Negative) Urine Glucose (UA) (Negative) mg/dL Urine Ketones (Negative) Urine Blood (Negative) Urine Nitrite (Negative) Urine Bilirubin (Negative) Urine Urobilinogen (0.2) mg/dL Ur Leukocyte Esterase (Negative) U Hyaline Cast (Auto) (0-2) /LPF Urine Microscopic RBC (0-5) /HPF Urine Microscopic WBC (0-5) /HPF Ur Epithelial Cells (None Seen) /HPF Urine Bacteria (None Seen) /HPF Urine Yeast (Budding) (None Seen) /HPF Urine Culture Reflexed (NO) C. difficile Screen (NEGATIVE) C.difficile 027-NAP1-B1 (NEGATIVE) 10/24/23 10/25/23 10/25/23 Range/Units 21:00 04:26 04:26 WBC 6.0 (4.0-10.5) x10^3/uL RBC 3.36 L (4.1-5.4) x10^6/uL Hgb 10.1 L (12.0-16.0) g/dL Hct 30.2 L (35-47) % MCV 89.9 (78-100) fL MCH 30.1 (26-32) pg MCHC 33.4 (32-36) g/dL RDW 13.4 (11.5-14.0) % Plt Count 197 (150-450) x10^3/uL MPV 10.7 (7.5-11.0) fL Gran % 63.4 (36.0-66.0) % Immature Gran % (Auto) 0.3 (0.00-0.4) % Nucleat RBC Rel Count 0.0 (0.00-0.1) % Eos # (Auto) 0.12 (0-0.5) x10^3/uL Immature Gran # (Auto) 0.02 (0.00-0.03) x10^3u/L Absolute Lymphs (auto) 1.45 (1.0-4.6) x10^3/uL Absolute Monos (auto) 0.59 (0.0-1.3) x10^3/uL Absolute Nucleated RBC 0.00 (0.00-0.01) x10^3u/L Lymphocytes % 24.0 (24.0-44.0) % Monocytes % 9.8 (0.0-12.0) % Eosinophils % 2.0 (0.00-5.0) % Basophils % 0.5 (0.0-0.4) % Absolute Granulocytes 3.83 (1.4-6.9) x10^3/uL Basophils # 0.03 (0-0.4) x10^3/uL Sodium 139 (135-145) mmol/L Potassium 3.3 L D 3.0 L* (3.5-5.1) mmol/L Chloride 111 H (98-107) mmol/L Carbon Dioxide 23 (22-30) mmol/L Anion Gap 7.9 (5-15) MEQ/L BUN 9 (7-17) mg/dL Creatinine 0.65 (0.52-1.04) mg/dL Estimated GFR 95.8 ML/MIN Glucose 88 (74-106) mg/dL Lactic Acid (0.4-2.0) Calcium 8.4 (8.4-10.2) mg/dL Magnesium (1.6-2.3) mg/dL Total Bilirubin 0.60 (0.2-1.3) mg/dL AST 27 (14-36) U/L ALT 19 (0-35) U/L Alkaline Phosphatase 82 (38-126) U/L Troponin I (0.000-0.033) ng/mL Serum Total Protein 5.8 L (6.3-8.2) g/dL Albumin 3.2 L (3.5-5.0) g/dL Lipase (23-300) U/L Urine Color (Yellow) Urine Appearance (Clear) Urine pH (4.6-8.0) Ur Specific [place] (1.005-1.030) Urine Protein (Negative) Urine Glucose (UA) (Negative) mg/dL Urine Ketones (Negative) Urine Blood (Negative) Urine Nitrite (Negative) Urine Bilirubin (Negative) Urine Urobilinogen (0.2) mg/dL Ur Leukocyte Esterase (Negative) U Hyaline Cast (Auto) (0-2) /LPF Urine Microscopic RBC (0-5) /HPF Urine Microscopic WBC (0-5) /HPF Ur Epithelial Cells (None Seen) /HPF Urine Bacteria (None Seen) /HPF Urine Yeast (Budding) (None Seen) /HPF Urine Culture Reflexed (NO) C. difficile Screen (NEGATIVE) C.difficile 027-NAP1-B1 (NEGATIVE) 10/25/23 10/25/23 Range/Units 05:05 10:00 WBC (4.0-10.5) x10^3/uL RBC (4.1-5.4) x10^6/uL Hgb (12.0-16.0) g/dL Hct (35-47) % MCV (78-100) fL MCH (26-32) pg MCHC (32-36) g/dL RDW (11.5-14.0) % Plt Count (150-450) x10^3/uL MPV (7.5-11.0) fL Gran % (36.0-66.0) % Immature Gran % (Auto) (0.00-0.4) % Nucleat RBC Rel Count (0.00-0.1) % Eos # (Auto) (0-0.5) x10^3/uL Immature Gran # (Auto) (0.00-0.03) x10^3u/L Absolute Lymphs (auto) (1.0-4.6) x10^3/uL Absolute Monos (auto) (0.0-1.3) x10^3/uL Absolute Nucleated RBC (0.00-0.01) x10^3u/L Lymphocytes % (24.0-44.0) % Monocytes % (0.0-12.0) % Eosinophils % (0.00-5.0) % Basophils % (0.0-0.4) % Absolute Granulocytes (1.4-6.9) x10^3/uL Basophils # (0-0.4) x10^3/uL Sodium (135-145) mmol/L Potassium 3.5 (3.5-5.1) mmol/L Chloride (98-107) mmol/L Carbon Dioxide (22-30) mmol/L Anion Gap (5-15) MEQ/L BUN (7-17) mg/dL Creatinine (0.52-1.04) mg/dL Estimated GFR ML/MIN Glucose (74-106) mg/dL Lactic Acid (0.4-2.0) Calcium (8.4-10.2) mg/dL Magnesium 1.7 (1.6-2.3) mg/dL Total Bilirubin (0.2-1.3) mg/dL AST (14-36) U/L ALT (0-35) U/L Alkaline Phosphatase (38-126) U/L Troponin I (0.000-0.033) ng/mL Serum Total Protein (6.3-8.2) g/dL Albumin (3.5-5.0) g/dL Lipase (23-300) U/L Urine Color (Yellow) Urine Appearance (Clear) Urine pH (4.6-8.0) Ur Specific [place] (1.005-1.030) Urine Protein (Negative) Urine Glucose (UA) (Negative) mg/dL Urine Ketones (Negative) Urine Blood (Negative) Urine Nitrite (Negative) Urine Bilirubin (Negative) Urine Urobilinogen (0.2) mg/dL Ur Leukocyte Esterase (Negative) U Hyaline Cast (Auto) (0-2) /LPF Urine Microscopic RBC (0-5) /HPF Urine Microscopic WBC (0-5) /HPF Ur Epithelial Cells (None Seen) /HPF Urine Bacteria (None Seen) /HPF Urine Yeast (Budding) (None Seen) /HPF Urine Culture Reflexed (NO) C. difficile Screen (NEGATIVE) C.difficile 027-NAP1-B1 (NEGATIVE) Radiology Exams: Radiology Procedures Category Date Time Status ABDOMEN AND PELVIS W/0 CONTRAS [CT] Stat Exams 10/24/23 13:16 Completed Assessment/Plan (1) Infectious colitis Current Visit: Yes Status: Acute Assessment & Plan: -CT demonstrating mild caecum and ascending colonic wall edema with related some fat stranding. This could suggest mild inflammatory/infectious etiology -Stool for cdiff, culture, O&P, giardia -NPO -anti -emetics -hold immodium until stool studies complete -probiotic 10/24: -No diarrheal episode overnight, stool studies pending collection -NPO -Surg consult for EGD -Continue Flagyl Code(s): A09 - INFECTIOUS GASTROENTERITIS AND COLITIS, UNSPECIFIED (2) UTI (urinary tract infection) Current Visit: Yes Status: Acute Assessment & Plan: -UA reviewed, suspicious for UTI, Levaquin given in ED, will continue, follow culture 10/24: -Ucult with gram -, continue levaquin, follow culture Code(s): N39.0 - URINARY TRACT INFECTION, SITE NOT SPECIFIED (3) HTN (hypertension) Current Visit: Yes Status: Acute Assessment & Plan: -stable- will continue home meds Code(s): I10 - ESSENTIAL (PRIMARY) HYPERTENSION (4) HLD (hyperlipidemia) Current Visit: Yes Status: Acute Assessment & Plan: -continue statin Code(s): E78.5 - HYPERLIPIDEMIA, UNSPECIFIED (5) CAD (coronary artery disease) Current Visit: Yes Status: Acute Assessment & Plan: -Follows with Dr. Lopez, h/o silent [place], will continue home meds - hold diuretics Code(s): I25.10 - ATHSCL HEART DISEASE OF [place] CORONARY ARTERY W/O ANG PCTRS (6) Hypokalemia Current Visit: Yes Status: Acute Assessment & Plan: -Received 80meq in ED, will recheck and replenish as appropriate -Hold diuretics -Monitor renal/lytes -tele 10/24: -Received 40 meq of oral potassium, labs now wnl, will continue to monitor and replenish as appropriate Code(s): E87.6 - HYPOKALEMIA (7) Hypothyroid Current Visit: Yes Status: Acute Assessment & Plan: -continue home meds VTE: bilateral scd PPI: protonix Dispo: 1-2 days Code status: Full code Code(s): E03.9 - HYPOTHYROIDISM, UNSPECIFIED Code(s): A09 - INFECTIOUS GASTROENTERITIS AND COLITIS, UNSPECIFIED (2) UTI (urinary tract infection) Current Visit: Yes Status: Acute Code(s): N39.0 - URINARY TRACT INFECTION, SITE NOT SPECIFIED (3) HTN (hypertension) Current Visit: Yes Status: Acute Code(s): I10 - ESSENTIAL (PRIMARY) HYPERTENSION (4) HLD (hyperlipidemia) Current Visit: Yes Status: Acute Code(s): E78.5 - HYPERLIPIDEMIA, UNSPECIFIED (5) CAD (coronary artery disease) Current Visit: Yes Status: Acute Code(s): I25.10 - ATHSCL HEART DISEASE OF [place] CORONARY ARTERY W/O ANG PCTRS (6) Hypokalemia Current Visit: Yes Status: Acute Code(s): E87.6 - HYPOKALEMIA (7) Hypothyroid Current Visit: Yes Status: Acute Code(s): E03.9 - HYPOTHYROIDISM, UNSPECIFIED
[2023-10-25] MEDS: VITAMIN D PO SCH (12:44)
[2023-10-25] MEDS: ZOCOR 20MG PO SCH (12:44)
[2023-10-25] MEDS: ECOTRIN 81 MG PO SCH (12:44)
[2023-10-25] MEDS: Cozaar 50 MG PO SCH (12:44)
[2023-10-25] MEDS: FLAGYL 500 MG IVPB 500 MG/100 ML BAG IV SCH (12:49)
[2023-10-25] MEDS: Lactated Ringers 1,000 ML IV SCH (15:21)
[2023-10-25] MEDS ORDERED: Versed 2 MG/2 ML Injection ONE (15:40)
[2023-10-25] MEDS ORDERED: DIPRIVAN 200 MG/20 ML IV ONE (15:40)
[2023-10-25] MEDS ORDERED: Xylocaine-Mpf 2% 5 Ml Vial ONE (15:40)
[2023-10-26] MEDS: TYLENOL 325 MG PO PRN (00:54)
[2023-10-26 04:44] LABS: Absolute Neutrophil Ct (ANC) 6.31 x10^3/uL (1.4-6.9); BASOPHIL % 0.2 % (0.0-0.4); Basophil (Absolute #) 0.02 x10^3/uL (0-0.4); Eosinophil (Absolute #) 0.08 x10^3/uL (0-0.5); Hematocrit 30.7 % (35-47); Hemoglobin 10.2 g/dL (12.0-16.0); IMMATURE GRAN # 0.03 x10^3u/L (0.00-0.03); IMMATURE GRAN % 0.4 % (0.00-0.4); Lymphocyte (Absolute #) 1.44 x10^3/uL (1.0-4.6); Lymphocytes % 17.1 % (24.0-44.0); Mean Cell Volume 89.8 fL (78-100); Mean Corpuscular Hemoglobin 29.8 pg (26-32); Mean Corpuscular Hgb Concent. 33.2 g/dL (32-36); Mean Platelet Volume 11.2 fL (7.5-11.0); Monocyte (Absolute #) 0.53 x10^3/uL (0.0-1.3); Monocytes % 6.3 % (0.0-12.0); Platelet Count 210 x10^3/uL (150-450); Red Blood Count 3.42 x10^6/uL (4.1-5.4); Red Cell Distribution Width 13.3 % (11.5-14.0); White Blood Count 8.4 x10^3/uL (4.0-10.5)
[2023-10-26 05:09] LABS: ALBUMIN 3.4 g/dL (3.5-5.0); ANION GAP 9.5 MEQ/L (5-15); BILIRUBIN,TOTAL 0.6 mg/dL (0.2-1.3); Calcium 8.6 mg/dL (8.4-10.2); Creatinine 1 0.56 mg/dL (0.52-1.04); EST GLOMERULAR FILTRATION RATE 99.4 ML/MIN; Potassium 3.3 mmol/L (3.5-5.1); Total Protein 6.1 g/dL (6.3-8.2)
[2023-10-26] MEDS: IMODIUM 2 MG PO PRN (07:54)
[2023-10-26] MEDS: NORCO 5/325 MG PO PRN (07:54)
[2023-10-26] MEDS: Klor Con PO SCH (07:55)
--- NOTE | 2023-10-26 08:10 | CONS ---
CONSULT DATE: 10/25/2023 HISTORY: The patient is a 68-year-old had some nausea and vomiting for a couple of weeks, some epigastric pain. She had diarrhea for a week with watery stool. No fever. No bloody stools. They asked me to see the patient given her nausea, vomiting and her mid epigastric pain. Upper endoscopy to evaluate for ulcer disease or other etiology. She has not had a complete gallbladder work up according to the staff. PAST MEDICAL HISTORY: Coronary artery disease, hypertension, hyperlipidemia, hypothyroidism, anxiety, depression, arthritis. PAST SURGICAL HISTORY: She denies any prior abdominal surgery. She had cardiac cath, bilateral knee replacement, hysterectomy and tubal in the past. HOME MEDICATIONS: Prior to admission included: Alprazolam, atorvastatin, hydrochlorothiazide, amlodipine, aspirin, levothyroxine for hypothyroidism, ascorbic acid, dextroamphetamine/amphetamine b.i.d., furosemide, losartan, Sertraline, vitamin D3. ALLERGIES: NKDA. FAMILY HISTORY: Negative in regards to this specific problem. SOCIAL HISTORY: Former smoker. Occasional alcohol use denies abuse. REVIEW OF SYSTEMS: Twelve systems reviewed pertinent for as noted above. Negative or noncontributory as above and per preadmission questionnaire. LAB DATA AND TESTS: White count 7.4, hemoglobin 12.1. CT had a little bit of mild ascending colon edema possibly some inflammatory/infectious etiology. Further studies are pending. PHYSICAL EXAMINATION: GENERAL: No acute distress. HEENT: Sclera nonicteric. EOMI. Oral mucous membranes moist. NECK: No JVD. CHEST: Equal excursion, nonlabored breathing. CVS: Regular rate and rhythm. ABDOMEN: Soft. No peritoneal signs. EXTREMITIES: No significant edema. NEURO: Alert. PSYCH: Appropriate mood and affect. IMPRESSION: Some epigastric pain, nausea, vomiting and had some diarrhea. This could be infectious bloating-type issue. It could be ulcer disease, celiac disease, colitis, neoplasia or other etiology is unclear at this time. I feel she is a candidate for upper endoscopy for further evaluation. General risk of bleeding or infection, risk of bowel injury or perforation possibly requiring further procedure, risk of missed or nondiagnosis or inability to diagnose the etiology of her symptoms. Otherwise, she may need further work up such as ultrasound of the gallbladder, HIDA scan if not done as well she could benefit from colonoscopy sometime in the future for further evaluation. At this time, as she has nausea and vomiting she probably would not tolerate the prep. Will plan upper endoscopy as initial part of her work up.
--- NOTE | 2023-10-26 08:31 | OP ---
SURGERY DATE/TIME: 10/25/2023 8311 PREOPERATIVE DIAGNOSIS: Epigastric pain, nausea, vomiting, history of some diarrhea. POSTOPERATIVE DIAGNOSES: 1) Mild erosive gastritis. 2) Small benign appearing gastric fundal polyp. 3) Very slight weakness of the hiatus, very slight tiny hiatal weakness versus early hiatal hernia, again very minimal. 4) Very short segment of 1 mm or 2 mm of possible early distal esophagitis. PROCEDURES: 1) EGD with cold biopsy of small bowel to evaluate for celiac sprue. 2) Cold biopsy of the antrum to evaluate for Helicobacter pylori. 3) Cold biopsy gastric polyps. 4) Cold biopsy distal esophagus to evaluate for early esophagitis versus normal variation of gastroesophageal junction. SURGEON: Dr. Erick Briceno M.D. ANESTHESIA: MAC. QUANTITATIVE BLOOD LOSS: Minimal. INDICATIONS: As noted above, consent was obtained. DESCRIPTION OF PROCEDURE AND FINDINGS: The patient taken to the endoscopy room. MAC anesthesia introduced. After official time out and no disagreement with planned procedure, bite block positioned. Video gastroscope passed down the back of the tongue down the esophagus through the patent pylorus to the junction of the third and fourth portion of the duodenum. Duodenum slightly unremarkable. Cold is taken to evaluate for celiac sprue. The scope pulled back into the stomach. Pylorus is widely patent. There was a little bit of antral gastric reflux. There were some signs of some mild erosive gastritis, a little petechial hemorrhage, gastric erythema and some superficial erosion. No evidence of any gross ulcer that could be visualized. Cold biopsy taken from the antrum to evaluate for Helicobacter pylori. On retroflex, the gastroesophageal junction was fairly snug against the scope. It was straightened. Small gastric polyp in the fundus removed with cold biopsy polypectomy. Scope pulled back. Gastroesophageal junction about 38 cm. There was maybe just a slight hiatal weakness, very slight early or tiny hiatal hernia, tiny about 1 to 2 mm inflammation distal esophagus gastroesophageal junction versus normal variation. Cold biopsy taken distal esophagus. Good hemostasis noted. The small polyp in the stomach had been removed as well. The remainder of the esophagus was grossly unremarkable. No signs of any ulcers or gross cancer. The scope is withdrawn. Findings discussed with the family out in the waiting area.
[2023-10-26] MEDS: SODIUM BICARBONATE PO SCH (09:19)
[2023-10-26] MEDS: LEVOFLOXACIN 750MG/150ML D5W 750 MG/150 ML BAG IV SCH (09:20)
--- NOTE | 2023-10-26 10:40 | XRAY ---
Indication: Pain, nausea, and vomiting. Comparison: None KUB nonacute and nonobstructed. Two round radiopacities presumed ingested medication/pills. Solid organs unremarkable. Osseous structures intact with lower lumbar degenerative changes.
--- NOTE | 2023-10-26 10:40 | XRAY ---
Indication: Short of breath. Comparison: None Portable chest demonstrates mild diffuse pulmonary edema and tiny bibasilar effusions without cardiomegaly. Bony thorax intact.
--- NOTE | 2023-10-26 10:54 | PCM.NOTE ---
Date and Time: 10/26/23 1045 Subjective Assessment: is a 68 year old female with a pmhx of CAD, HLD, HTN, and hypothyroidism presented to ED 10/24/23 with complaints of abdominal pain, nausea with vomiting, and diarrhea. Patient reports that she was in her usual state of health until about three weeks ago when she started experiencing nausea off and on. In the last two weeks she reports that symptoms have progressed to nausea with episodes of vomiting, epigastric pain, and diarrhea (> 4 BMs per day). Denies fever, chills, hematuria, dysuria, flank pain, cough, hematochezia, sob, cp, MORRIS, dizziness.In ED, vitals stable. CT of the abdomen demonstrating mild caecum and ascending colonic wall edema with related some fat stranding suggestive of mild inflammatory/infectious etiology. Initial lab findings remarkable for hypokalemia with potassium at 2.4 and urinalysis suggestive of UTI- culture showing Ecoli with sensitivity to levaquin. IP treatment with potassium supplementation, levaquin, and flagyl. EGD performed with noted esophagitis, gastric polyp, and hernia. Patient continues with diarrhea, and now hematochezia. Plan for colonoscopy. 10/25/23: Met with patient bedside. Nausea has improved. No diarrheal episodes since admission. Patient does endorse continued mid epigastric pain and reports this has been going on for about three weeks. Plan for surgery consult today for possible EGD. NPO for now. Denies fever,cough, sob, cp, abdominal pain, MORRIS, dizziness. Denies urinary frequency, dysuria, or hematuria. Potassium low this m orning, now WNL at 3.5 after replenishment. 10/26/23: Overnight events noted. Patient endorses she was awake most of the night with back pain and diarrhea. She reports stool did have moderate amounts of blood in it. She also has some shortness of breath, mostly with exertion. Epigastric pain and nausea have improved. Denies fever,cough, cp, abdominal pain, MORRIS, dizziness, N/V. Surgery consulted, plan for colonoscopy possibly Tuesday. - Review of Systems Constitutional: Weakness Eyes: No Symptoms Ears, Nose, & Throat: No Symptoms Respiratory: Short Of Breath Cardiac: No Symptoms Abdominal/Gastrointestinal: Abdominal Pain, Diarrhea Genitourinary Symptoms: No Symptoms Musculoskeletal: Back Pain Skin: No Symptoms Neurological: No Symptoms Psychological: No Symptoms Endocrine: No Symptoms Hematologic/Lymphatic: No Symptoms Immunological/Allergic: No Symptoms Objective Exam General Appearance: no apparent distress Neurologic Exam: alert, oriented x 3, cooperative Skin Exam: pale Eye Exam: PERRL Ears, Nose, Throat Exam: dry mucous membranes Neck Exam: normal inspection Respiratory Exam: normal breath sounds, lungs clear Cardiovascular Exam: regular rate/rhythm, normal heart sounds Gastrointestinal/Abdomen Exam: soft, normal bowel sounds Extremity Exam: normal inspection Back Exam: vertebral tenderness Pelvic Exam: deferred Rectal Exam: deferred Objective Data Vital Signs: Vital Signs - 24 hr Temp Pulse Resp BP Pulse Ox 10/26/23 08:06 94 L 10/26/23 08:00 18 10/26/23 07:00 98.1 F 59 L 18 127/69 94 L 10/26/23 04:00 20 10/26/23 03:00 62 10/26/23 00:06 92 L 10/26/23 00:00 20 10/25/23 23:00 99.4 F 75 20 125/69 92 L 10/25/23 20:00 18 10/25/23 19:31 98.5 F 64 23 138/71 95 10/25/23 18:26 98.8 F 65 22 126/60 94 L 10/25/23 17:56 97.8 F 88 28 H 113/64 94 L 10/25/23 17:26 97.7 F 67 26 H 121/64 96 10/25/23 17:13 94 L 10/25/23 17:11 97.7 F 57 L 17 128/68 94 L 10/25/23 16:56 97.5 F 57 L 21 136/69 97 10/25/23 16:41 97.4 F 88 17 130/62 93 L 10/25/23 15:27 97.9 F 61 14 114/61 99 10/25/23 11:54 97.9 F 61 14 114/61 99 Pain Assessment - Last Documented Pain Intensity 2 Pain Scale Used 0-10 Pain Scale Intake and Output: Intake & Output 10/23/23 10/24/23 10/25/23 10/26/23 11:59 11:59 11:59 11:59 Intake Total 1821 2427 Balance 1821 2427 Weight 71 kg 71 kg Lab Results: Lab Results-Last 24 Hours 10/24/23 10/26/23 10/26/23 Range/Units 10:34 04:27 04:27 WBC 8.4 (4.0-10.5) x10^3/uL RBC 3.42 L (4.1-5.4) x10^6/uL Hgb 10.2 L (12.0-16.0) g/dL Hct 30.7 L (35-47) % MCV 89.8 (78-100) fL MCH 29.8 (26-32) pg MCHC 33.2 (32-36) g/dL RDW 13.3 (11.5-14.0) % Plt Count 210 (150-450) x10^3/uL MPV 11.2 H (7.5-11.0) fL Gran % 75.0 H (36.0-66.0) % Immature Gran % (Auto) 0.4 (0.00-0.4) % Nucleat RBC Rel Count 0.0 (0.00-0.1) % Eos # (Auto) 0.08 (0-0.5) x10^3/uL Immature Gran # (Auto) 0.03 (0.00-0.03) x10^3u/L Absolute Lymphs (auto) 1.44 (1.0-4.6) x10^3/uL Absolute Monos (auto) 0.53 (0.0-1.3) x10^3/uL Absolute Nucleated RBC 0.00 (0.00-0.01) x10^3u/L Lymphocytes % 17.1 L (24.0-44.0) % Monocytes % 6.3 (0.0-12.0) % Eosinophils % 1.0 (0.00-5.0) % Basophils % 0.2 (0.0-0.4) % Absolute Granulocytes 6.31 (1.4-6.9) x10^3/uL Basophils # 0.02 (0-0.4) x10^3/uL Sodium 138 (135-145) mmol/L Potassium 3.3 L (3.5-5.1) mmol/L Chloride 112 H (98-107) mmol/L Carbon Dioxide 19 L (22-30) mmol/L Anion Gap 9.5 (5-15) MEQ/L BUN 6 L (7-17) mg/dL Creatinine 0.56 (0.52-1.04) mg/dL Estimated GFR 99.4 ML/MIN Glucose 90 (74-106) mg/dL Calcium 8.6 (8.4-10.2) mg/dL Magnesium (1.6-2.3) mg/dL Total Bilirubin 0.60 (0.2-1.3) mg/dL AST 35 (14-36) U/L ALT 24 (0-35) U/L Alkaline Phosphatase 103 (38-126) U/L Serum Total Protein 6.1 L (6.3-8.2) g/dL Albumin 3.4 L (3.5-5.0) g/dL C. difficile Screen NEGATIVE (NEGATIVE) C.difficile 027-NAP1-B1 PRESUMPTIVE NEGATIVE (NEGATIVE) 10/26/23 Range/Units 04:27 WBC (4.0-10.5) x10^3/uL RBC (4.1-5.4) x10^6/uL Hgb (12.0-16.0) g/dL Hct (35-47) % MCV (78-100) fL MCH (26-32) pg MCHC (32-36) g/dL RDW (11.5-14.0) % Plt Count (150-450) x10^3/uL MPV (7.5-11.0) fL Gran % (36.0-66.0) % Immature Gran % (Auto) (0.00-0.4) % Nucleat RBC Rel Count (0.00-0.1) % Eos # (Auto) (0-0.5) x10^3/uL Immature Gran # (Auto) (0.00-0.03) x10^3u/L Absolute Lymphs (auto) (1.0-4.6) x10^3/uL Absolute Monos (auto) (0.0-1.3) x10^3/uL Absolute Nucleated RBC (0.00-0.01) x10^3u/L Lymphocytes % (24.0-44.0) % Monocytes % (0.0-12.0) % Eosinophils % (0.00-5.0) % Basophils % (0.0-0.4) % Absolute Granulocytes (1.4-6.9) x10^3/uL Basophils # (0-0.4) x10^3/uL Sodium (135-145) mmol/L Potassium (3.5-5.1) mmol/L Chloride (98-107) mmol/L Carbon Dioxide (22-30) mmol/L Anion Gap (5-15) MEQ/L BUN (7-17) mg/dL Creatinine (0.52-1.04) mg/dL Estimated GFR ML/MIN Glucose (74-106) mg/dL Calcium (8.4-10.2) mg/dL Magnesium 1.8 (1.6-2.3) mg/dL Total Bilirubin (0.2-1.3) mg/dL AST (14-36) U/L ALT (0-35) U/L Alkaline Phosphatase (38-126) U/L Serum Total Protein (6.3-8.2) g/dL Albumin (3.5-5.0) g/dL C. difficile Screen (NEGATIVE) C.difficile 027-NAP1-B1 (NEGATIVE) Radiology Exams: Radiology Procedures Category Date Time Status ABDOMEN AND PELVIS W/0 CONTRAS [CT] Stat Exams 10/24/23 13:16 Completed CHEST 1 VIEW (PORTABLE) Urgent Exams 10/26/23 10:22 Completed KUB Urgent Exams 10/26/23 10:22 Completed Multi-Disciplinary Progress Notes: Multi-Disciplinary Progress Notes 10/26/23 10:35 Case Management Note by Rosalia Webb S/W PATIENT- NO CHANGE IN DC PLANS AT THIS TIME Initialized on 10/26/23 10:35 - END OF NOTE Assessment/Plan (1) Infectious colitis Current Visit: Yes Status: Acute Assessment & Plan: -CT demonstrating mild caecum and ascending colonic wall edema with related some fat stranding. This could suggest mild inflammatory/infectious etiology -Stool for cdiff, culture, O&P, giardia -NPO -anti -emetics -hold immodium until stool studies complete -probiotic 10/24: -No diarrheal episode overnight, stool studies pending collection -NPO -Surg consult for EGD -Continue Flagyl 10/25: -EGD with esophagitis/gastric polyp/hernia -colonoscopy Tuesday -Continue zosyn -CDiff negative Code(s): A09 - INFECTIOUS GASTROENTERITIS AND COLITIS, UNSPECIFIED (2) UTI (urinary tract infection) Current Visit: Yes Status: Acute Assessment & Plan: -UA reviewed, suspicious for UTI, Levaquin given in ED, will continue, follow culture 10/24: -Ucult with gram -, continue levaquin, follow culture 10/25: -Ucult with ecoli - sensitive to levaquin, will continue Code(s): N39.0 - URINARY TRACT INFECTION, SITE NOT SPECIFIED (3) HTN (hypertension) Current Visit: Yes Status: Acute Assessment & Plan: -stable- will continue home meds Code(s): I10 - ESSENTIAL (PRIMARY) HYPERTENSION (4) HLD (hyperlipidemia) Current Visit: Yes Status: Acute Assessment & Plan: -continue statin Code(s): E78.5 - HYPERLIPIDEMIA, UNSPECIFIED (5) CAD (coronary artery disease) Current Visit: Yes Status: Acute Assessment & Plan: -Follows with Dr. Lopez, h/o silent DC, will continue home meds - hold diuretics Code(s): I25.10 - ATHSCL HEART DISEASE OF [place] CORONARY ARTERY W/O ANG PCTRS (6) Hypokalemia Current Visit: Yes Status: Acute Assessment & Plan: -Received 80meq in ED, will recheck and replenish as appropriate -Hold diuretics -Monitor renal/lytes -tele 10/24: -Received 40 meq of oral potassium, labs now wnl, will continue to monitor and replenish as appropriate 10/25: -3.3 this morning, will replenish Code(s): E87.6 - HYPOKALEMIA (7) Hypothyroid Current Visit: Yes Status: Acute Assessment & Plan: -continue home meds #Metabolic acidosis -most likely secondary to vomiting/diarrhea -oral bicarb -continue to monitor VTE: bilateral scd PPI: protonix Dispo: 1-2 days Code status: Full code Code(s): E03.9 - HYPOTHYROIDISM, UNSPECIFIED Code(s): A09 - INFECTIOUS GASTROENTERITIS AND COLITIS, UNSPECIFIED Code(s): A09 - INFECTIOUS GASTROENTERITIS AND COLITIS, UNSPECIFIED (2) UTI (urinary tract infection) Current Visit: Yes Status: Acute Code(s): N39.0 - URINARY TRACT INFECTION, SITE NOT SPECIFIED (3) HTN (hypertension) Current Visit: Yes Status: Acute Code(s): I10 - ESSENTIAL (PRIMARY) HYPERTENSION (4) HLD (hyperlipidemia) Current Visit: Yes Status: Acute Code(s): E78.5 - HYPERLIPIDEMIA, UNSPECIFIED (5) CAD (coronary artery disease) Current Visit: Yes Status: Acute Code(s): I25.10 - ATHSCL HEART DISEASE OF [place] CORONARY ARTERY W/O ANG PCTRS (6) Hypokalemia Current Visit: Yes Status: Acute Code(s): E87.6 - HYPOKALEMIA (7) Hypothyroid Current Visit: Yes Status: Acute Code(s): E03.9 - HYPOTHYROIDISM, UNSPECIFIED (8) Metabolic acidosis Current Visit: Yes Status: Acute Code(s): E87.20 - ACIDOSIS, UNSPECIFIED
[2023-10-26] MEDS: Zofran 4 MG/2 ML VIAL IV PRN (11:05)
[2023-10-26] MEDS: Protonix 40MG Tablet PO SCH (17:04)
[2023-10-27 04:33] LABS: Absolute Neutrophil Ct (ANC) 8.24 x10^3/uL (1.4-6.9); BASOPHIL % 0.2 % (0.0-0.4); Basophil (Absolute #) 0.02 x10^3/uL (0-0.4); Eosinophil % 0.2 % (0.00-5.0); Eosinophil (Absolute #) 0.02 x10^3/uL (0-0.5); Hematocrit 31.5 % (35-47); Hemoglobin 10.4 g/dL (12.0-16.0); IMMATURE GRAN # 0.05 x10^3u/L (0.00-0.03); IMMATURE GRAN % 0.5 % (0.00-0.4); Lymphocyte (Absolute #) 1.07 x10^3/uL (1.0-4.6); Lymphocytes % 10.5 % (24.0-44.0); Mean Cell Volume 89.7 fL (78-100); Mean Corpuscular Hemoglobin 29.6 pg (26-32); Mean Platelet Volume 10.4 fL (7.5-11.0); Monocyte (Absolute #) 0.77 x10^3/uL (0.0-1.3); Monocytes % 7.6 % (0.0-12.0); Platelet Count 236 x10^3/uL (150-450); Red Blood Count 3.51 x10^6/uL (4.1-5.4); Red Cell Distribution Width 13.7 % (11.5-14.0); White Blood Count 10.2 x10^3/uL (4.0-10.5)
[2023-10-27 05:27] LABS: ALBUMIN 3.4 g/dL (3.5-5.0); ANION GAP 11.7 MEQ/L (5-15); BILIRUBIN,TOTAL 0.7 mg/dL (0.2-1.3); Calcium 8.8 mg/dL (8.4-10.2); Creatinine 1 0.61 mg/dL (0.52-1.04); EST GLOMERULAR FILTRATION RATE 97.3 ML/MIN; Potassium 3.5 mmol/L (3.5-5.1); Total Protein 6.1 g/dL (6.3-8.2)
--- NOTE | 2023-10-27 07:17 | PCM.NOTE ---
Date and Time: 10/27/23712 Subjective Assessment: 68 year old female admitted 10/24/23 for infective colitis after experience a 3 week history of nausea, and two week history of vomiting and diarrhea. CT imaging of the abdomen demonstrating mild caecum and ascending colonic wall edema with related some fat stranding suggestive of mild inflammatory/infectious etiology. KUB unremarkable. CXR with mild pulmonary edema. Initial lab findings remarkable for hypokalemia with potassium at 2.4 and urinalysis suggestive of UTI- culture showing Ecoli with sensitivity to levaquin. IP treatment with potassium supplementation, levaquin, and flagyl. EGD performed with noted esophagitis, gastric polyp, and hernia. Patient continues with diarrhea, and now hematochezia. Plan for colonoscopy Tuesday per surgery. 10/26: Met with patient bedside. Nausea and vomiting have resolved this morning. Still having bouts of diarrhea with blood. Shortness of breath also improved. Epigastric pain resolved. Plan for surgery to evaluate for colonoscopy tomorrow if patient able to tolerate prep. Denies fever,cough, sob, cp, abdominal pain, MORRIS, dizziness, N/V. No urinary symptoms. - Review of Systems Constitutional: No Symptoms Eyes: No Symptoms Ears, Nose, & Throat: No Symptoms Respiratory: Short Of Breath Cardiac: No Symptoms Abdominal/Gastrointestinal: Diarrhea Genitourinary Symptoms: No Symptoms Musculoskeletal: No Symptoms Skin: No Symptoms Neurological: No Symptoms Psychological: No Symptoms Endocrine: No Symptoms Hematologic/Lymphatic: No Symptoms Immunological/Allergic: No Symptoms Objective Exam General Appearance: no apparent distress Neurologic Exam: alert, oriented x 3, cooperative Skin Exam: normal color Eye Exam: PERRL Ears, Nose, Throat Exam: normal ENT inspection Neck Exam: normal inspection Respiratory Exam: crackles/rales Cardiovascular Exam: regular rate/rhythm, normal heart sounds Gastrointestinal/Abdomen Exam: soft, normal bowel sounds, tenderness Extremity Exam: normal inspection Back Exam: normal inspection Pelvic Exam: deferred Rectal Exam: deferred Objective Data Vital Signs: Vital Signs - 24 hr Temp Pulse Resp BP Pulse Ox 10/27/23 03:00 99.1 F 86 25 H 140/66 92 L 10/26/23 23:59 17 10/26/23 23:00 98.8 F 88 17 140/77 93 L 10/26/23 19:39 22 10/26/23 19:04 95 10/26/23 19:00 98.4 F 72 19 148/74 95 10/26/23 16:00 18 10/26/23 15:00 98.2 F 67 19 155/72 92 L 10/26/23 11:11 18 10/26/23 11:00 97.5 F 56 L 18 145/70 92 L 10/26/23 08:06 94 L 10/26/23 08:00 18 Pain Assessment - Last Documented Pain Intensity 0 Pain Scale Used 0-10 Pain Scale Intake and Output: Intake & Output 10/24/23 10/25/23 10/26/23 10/27/23 11:59 11:59 11:59 11:59 Intake Total 1821 2427 3152 Output Total 200 Balance 1821 2227 3152 Weight 71 kg 71 kg Lab Results: Lab Results-Last 24 Hours 10/26/23 10/27/23 10/27/23 Range/Units 12:09 04:20 04:20 WBC 10.2 (4.0-10.5) x10^3/uL RBC 3.51 L (4.1-5.4) x10^6/uL Hgb 10.4 L (12.0-16.0) g/dL Hct 31.5 L (35-47) % MCV 89.7 (78-100) fL MCH 29.6 (26-32) pg MCHC 33.0 (32-36) g/dL RDW 13.7 (11.5-14.0) % Plt Count 236 (150-450) x10^3/uL MPV 10.4 (7.5-11.0) fL Gran % 81.0 H (36.0-66.0) % Immature Gran % (Auto) 0.5 H (0.00-0.4) % Nucleat RBC Rel Count 0.0 (0.00-0.1) % Eos # (Auto) 0.02 (0-0.5) x10^3/uL Immature Gran # (Auto) 0.05 H (0.00-0.03) x10^3u/L Absolute Lymphs (auto) 1.07 (1.0-4.6) x10^3/uL Absolute Monos (auto) 0.77 (0.0-1.3) x10^3/uL Absolute Nucleated RBC 0.00 (0.00-0.01) x10^3u/L Lymphocytes % 10.5 L (24.0-44.0) % Monocytes % 7.6 (0.0-12.0) % Eosinophils % 0.2 (0.00-5.0) % Basophils % 0.2 (0.0-0.4) % Absolute Granulocytes 8.24 H (1.4-6.9) x10^3/uL Basophils # 0.02 (0-0.4) x10^3/uL Sodium 137 (135-145) mmol/L Potassium 3.6 3.5 (3.5-5.1) mmol/L Chloride 109 H (98-107) mmol/L Carbon Dioxide 20 L (22-30) mmol/L Anion Gap 11.7 (5-15) MEQ/L BUN 3 L (7-17) mg/dL Creatinine 0.61 (0.52-1.04) mg/dL Estimated GFR 97.3 ML/MIN Glucose 92 (74-106) mg/dL Calcium 8.8 (8.4-10.2) mg/dL Total Bilirubin 0.70 (0.2-1.3) mg/dL AST 29 (14-36) U/L ALT 23 (0-35) U/L Alkaline Phosphatase 101 (38-126) U/L Serum Total Protein 6.1 L (6.3-8.2) g/dL Albumin 3.4 L (3.5-5.0) g/dL Radiology Exams: Radiology Procedures Category Date Time Status CHEST 1 VIEW (PORTABLE) Urgent Exams 10/26/23 10:22 Completed KUB Urgent Exams 10/26/23 10:22 Completed Multi-Disciplinary Progress Notes: Multi-Disciplinary Progress Notes 10/26/23 12:44 Respiratory Note by Tameka Lemus EDUCATION ON PROPER TECHNIQUE FOR INCENTIVE SPIROMETRY GIVEN TO PT. REDEMONDRTATES PROPERLY Initialized on 10/26/23 12:44 - END OF NOTE 10/26/23 10:35 Case Management Note by Rosalia Webb S/[place] PATIENT- NO CHANGE IN DC PLANS AT THIS TIME Initialized on 10/26/23 10:35 - END OF NOTE Assessment/Plan (1) Infectious colitis Current Visit: Yes Status: Acute Assessment & Plan: -CT demonstrating mild caecum and ascending colonic wall edema with related some fat stranding. This could suggest mild inflammatory/infectious etiology -Stool for cdiff, culture, O&P, giardia -NPO -anti -emetics -hold immodium until stool studies complete -probiotic 10/24: -No diarrheal episode overnight, stool studies pending collection -NPO -Surg consult for EGD -Continue Flagyl 10/25: -EGD with esophagitis/gastric polyp/hernia -colonoscopy Tuesday -Continue zosyn -CDiff negative 10/26: -Surgery to eval for colonoscopy Tuesday if pt able to tolerate prep - nausea/vomiting have resolved Code(s): A09 - INFECTIOUS GASTROENTERITIS AND COLITIS, UNSPECIFIED (2) UTI (urinary tract infection) Current Visit: Yes Status: Acute Assessment & Plan: -UA reviewed, suspicious for UTI, Levaquin given in ED, will continue, follow culture 10/24: -Ucult with gram -, continue levaquin, follow culture 10/25: -Ucult with ecoli - sensitive to levaquin, will continue Code(s): N39.0 - URINARY TRACT INFECTION, SITE NOT SPECIFIED (3) HTN (hypertension) Current Visit: Yes Status: Acute Assessment & Plan: -stable- will continue home meds Code(s): I10 - ESSENTIAL (PRIMARY) HYPERTENSION (4) HLD (hyperlipidemia) Current Visit: Yes Status: Acute Assessment & Plan: -continue statin Code(s): E78.5 - HYPERLIPIDEMIA, UNSPECIFIED (5) CAD (coronary artery disease) Current Visit: Yes Status: Acute Assessment & Plan: -Follows with Dr. Lopez, h/o silent [place], will continue home meds - hold diuretics Code(s): I25.10 - ATHSCL HEART DISEASE OF [place] CORONARY ARTERY W/O ANG PCTRS (6) Hypokalemia Current Visit: Yes Status: Acute Assessment & Plan: -Received 80meq in ED, will recheck and replenish as appropriate -Hold diuretics -Monitor renal/lytes -tele 10/24: -Received 40 meq of oral potassium, labs now wnl, will continue to monitor and replenish as appropriate 10/25: -3.3 this morning, will replenish 10/26: -resolved Code(s): E87.6 - HYPOKALEMIA (7) Hypothyroid Current Visit: Yes Status: Acute Assessment & Plan: -continue home meds #Metabolic acidosis -most likely secondary to vomiting/diarrhea -oral bicarb -continue to monitor 10/26: -improving, continue bicarb VTE: bilateral scd PPI: protonix Dispo: 1-2 days Code status: Full code Code(s): E03.9 - HYPOTHYROIDISM, UNSPECIFIED Code(s): A09 - INFECTIOUS GASTROENTERITIS AND COLITIS, UNSPECIFIED Code(s): A09 - INFECTIOUS GASTROENTERITIS AND COLITIS, UNSPECIFIED (2) UTI (urinary tract infection) Current Visit: Yes Status: Acute Code(s): N39.0 - URINARY TRACT INFECTION, SITE NOT SPECIFIED (3) HTN (hypertension) Current Visit: Yes Status: Acute Code(s): I10 - ESSENTIAL (PRIMARY) HYPERTENSION (4) HLD (hyperlipidemia) Current Visit: Yes Status: Acute Code(s): E78.5 - HYPERLIPIDEMIA, UNSPECIFIED (5) CAD (coronary artery disease) Current Visit: Yes Status: Acute Code(s): I25.10 - ATHSCL HEART DISEASE OF [place] CORONARY ARTERY W/O ANG PCTRS (6) Hypokalemia Current Visit: Yes Status: Acute Code(s): E87.6 - HYPOKALEMIA (7) Hypothyroid Current Visit: Yes Status: Acute Code(s): E03.9 - HYPOTHYROIDISM, UNSPECIFIED (8) Metabolic acidosis Current Visit: Yes Status: Acute Code(s): E87.20 - ACIDOSIS, UNSPECIFIED
[2023-10-27] MEDS: Lasix 40 MG/4 ML IV ONE (08:42)
[2023-10-27] MEDS ORDERED: Lasix 20 MG/2 ML IV ONE (10:58)
[2023-10-27] MEDS: Golytely Solution 4000 ML PO ONE (20:40)
--- NOTE | 2023-10-28 08:51 | CONS ---
CONSULT DATE: 10/27/2023 HISTORY: Jaylin Will is a candidate for colonoscopy. It was suggested that she might not tolerate the prep. It sounds like she probably can. She may need to take some Zofran. She is nauseated. She was seen by Dr. Briceno on initial consultation. I am seeing her secondarily. We will go ahead and run the prep tonight and see how much prep we are able to get down. We might be able to do colonoscopy late tomorrow evening or we might not be able to. We will see how this prep progresses.
[2023-10-28] MEDS: Lactated Ringers 1,000 ML IV SCH (10:45)
--- NOTE | 2023-10-28 11:53 | PCM.NOTE ---
Date and Time: 10/28/23 1147 Subjective Assessment: 68 year old female admitted 10/24/23 for infective colitis after experience a 3 week history of nausea, and two week history of vomiting and diarrhea. CT imaging of the abdomen demonstrating mild caecum and ascending colonic wall edema with related some fat stranding suggestive of mild inflammatory/infectious etiology. KUB unremarkable. CXR with mild pulmonary edema. Initial lab findings remarkable for hypokalemia with potassium at 2.4 and urinalysis suggestive of UTI- culture showing Ecoli with sensitivity to levaquin. IP treatment with potassium supplementation, levaquin, and flagyl. EGD performed with noted esophagitis, gastric polyp, and hernia. Patient continues with diarrhea, and now hematochezia. Plan for colonoscopy Tuesday per surgery. 10/26: Met with patient bedside. Nausea and vomiting have resolved this morning. Still having bouts of diarrhea with blood. Shortness of breath also improved. Epigastric pain resolved. Plan for surgery to evaluate for colonoscopy tomorrow if patient able to tolerate prep. Denies fever,cough, sob, cp, abdominal pain, MORRIS, dizziness, N/V. No urinary symptoms. 10/28/23: Met with patient bedside. Initially stated nausea/vomiting have resolved but later vomited during interview. She was able to tolerate colonoscopy prep and is scheduled today. Patient was wanting to discharge after the colonoscopy. Labs and vitals are stable. Would like patient to be able to tolerate a diet before she is discharged -pending colonoscopy results. No further shortness of breath. No urinary symptoms. Has received five days of levaquin which should be sufficient coverage for UTI. - Review of Systems Constitutional: No Symptoms Eyes: No Symptoms Ears, Nose, & Throat: No Symptoms Respiratory: No Symptoms Cardiac: No Symptoms Abdominal/Gastrointestinal: Vomiting Genitourinary Symptoms: No Symptoms Musculoskeletal: No Symptoms Neurological: No Symptoms Psychological: No Symptoms Endocrine: No Symptoms Hematologic/Lymphatic: No Symptoms Immunological/Allergic: No Symptoms Objective Exam General Appearance: no apparent distress Neurologic Exam: alert, oriented x 3, cooperative Skin Exam: normal color Eye Exam: PERRL Ears, Nose, Throat Exam: normal ENT inspection Neck Exam: normal inspection Respiratory Exam: crackles/rales Cardiovascular Exam: regular rate/rhythm, normal heart sounds Gastrointestinal/Abdomen Exam: soft, normal bowel sounds Extremity Exam: normal inspection Back Exam: normal inspection Pelvic Exam: deferred Rectal Exam: deferred Objective Data Vital Signs: Vital Signs - 24 hr Temp Pulse Resp BP Pulse Ox 10/28/23 11:36 97.9 F 80 16 128/57 94 L 10/28/23 08:00 16 10/28/23 07:10 93 L 10/28/23 07:00 97.8 F 91 H 16 117/70 93 L 10/28/23 04:00 16 10/28/23 03:00 98.3 F 87 16 118/58 93 L 10/28/23 00:00 16 10/27/23 23:00 98.7 F 61 19 129/60 97 10/27/23 21:18 93 L 10/27/23 20:00 16 10/27/23 19:00 98.8 F 63 16 138/65 95 10/27/23 16:48 96 10/27/23 16:00 14 10/27/23 15:00 97.6 F 77 16 129/62 90 L 10/27/23 12:00 18 Pain Assessment - Last Documented Pain Intensity 0 Pain Scale Used 0-10 Pain Scale Intake and Output: Intake & Output 10/25/23 10/26/23 10/27/23 10/28/23 11:59 11:59 11:59 11:59 Intake Total 1821 2427 3212 4140 Output Total 200 Balance 1821 2227 3212 4140 Weight 71 kg 71 kg 71 kg Multi-Disciplinary Progress Notes: Multi-Disciplinary Progress Notes 10/28/23 11:17 Case Management Note by Rosalia Webb S/W PATIENT- SHE CONTINUES TO DENY ANY NEW NEEDS AT TIME OF DC. SHE PLANS TO DC HOME TO HER PLF AT TIME OF DC Initialized on 10/28/23 11:17 - END OF NOTE Assessment/Plan (1) Infectious colitis Current Visit: Yes Status: Acute Assessment & Plan: -CT demonstrating mild caecum and ascending colonic wall edema with related some fat stranding. This could suggest mild inflammatory/infectious etiology -Stool for cdiff, culture, O&P, giardia -NPO -anti -emetics -hold immodium until stool studies complete -probiotic 10/24: -No diarrheal episode overnight, stool studies pending collection -NPO -Surg consult for EGD -Continue Flagyl 10/25: -EGD with esophagitis/gastric polyp/hernia -colonoscopy Tuesday -Continue zosyn -CDiff negative 10/26: -Surgery to eval for colonoscopy Tuesday if pt able to tolerate prep - nausea/vomiting have resolved 10/27: -colonoscopy scheduled today, may discharge pending findings/tolerating diet Code(s): A09 - INFECTIOUS GASTROENTERITIS AND COLITIS, UNSPECIFIED (2) UTI (urinary tract infection) Current Visit: Yes Status: Acute Assessment & Plan: -UA reviewed, suspicious for UTI, Levaquin given in ED, will continue, follow culture 10/24: -Ucult with gram -, continue levaquin, follow culture 10/25: -Ucult with ecoli - sensitive to levaquin, will continue 10/27: -5 days of levaquin, no need for further abx Code(s): N39.0 - URINARY TRACT INFECTION, SITE NOT SPECIFIED (3) HTN (hypertension) Current Visit: Yes Status: Acute Assessment & Plan: -stable- will continue home meds Code(s): I10 - ESSENTIAL (PRIMARY) HYPERTENSION (4) HLD (hyperlipidemia) Current Visit: Yes Status: Acute Assessment & Plan: -continue statin Code(s): E78.5 - HYPERLIPIDEMIA, UNSPECIFIED (5) CAD (coronary artery disease) Current Visit: Yes Status: Acute Assessment & Plan: -Follows with Dr. Lopez, h/o silent [place], will continue home meds - hold diuretics Code(s): I25.10 - ATHSCL HEART DISEASE OF [place] CORONARY ARTERY W/O ANG PCTRS (6) Hypokalemia Current Visit: Yes Status: Acute Assessment & Plan: -Received 80meq in ED, will recheck and replenish as appropriate -Hold diuretics -Monitor renal/lytes -tele 10/24: -Received 40 meq of oral potassium, labs now wnl, will continue to monitor and replenish as appropriate 10/25: -3.3 this morning, will replenish 10/26: -resolved Code(s): E87.6 - HYPOKALEMIA (7) Hypothyroid Current Visit: Yes Status: Acute Assessment & Plan: -continue home meds #Metabolic acidosis -most likely secondary to vomiting/diarrhea -oral bicarb -continue to monitor 10/26: -improving, continue bicarb Code(s): A09 - INFECTIOUS GASTROENTERITIS AND COLITIS, UNSPECIFIED (2) UTI (urinary tract infection) Current Visit: Yes Status: Acute Code(s): N39.0 - URINARY TRACT INFECTION, SITE NOT SPECIFIED (3) HTN (hypertension) Current Visit: Yes Status: Acute Code(s): I10 - ESSENTIAL (PRIMARY) HYPERTENSION (4) HLD (hyperlipidemia) Current Visit: Yes Status: Acute Code(s): E78.5 - HYPERLIPIDEMIA, UNSPECIFIED (5) CAD (coronary artery disease) Current Visit: Yes Status: Acute Code(s): I25.10 - ATHSCL HEART DISEASE OF [place] CORONARY ARTERY W/O ANG PCTRS (6) Hypokalemia Current Visit: Yes Status: Acute Code(s): E87.6 - HYPOKALEMIA (7) Hypothyroid Current Visit: Yes Status: Acute Code(s): E03.9 - HYPOTHYROIDISM, UNSPECIFIED (8) Metabolic acidosis Current Visit: Yes Status: Acute Code(s): E87.20 - ACIDOSIS, UNSPECIFIED
--- NOTE | 2023-10-28 17:36 | PCM.CONS ---
History of Present Illness - Neuro Consultation ED Arrival Date & Time: 10/24/23 12:38 Providers: Attending Provider: ANGELICA VALENCIA MD ED Provider: AUGUSTA RUSSELL MD Consulting Provider: QUE KWOK MD (MATT) - History of Present Illness HPI: The patient is a 68F Review of Systems - Review of Systems Review of Systems (Narrative): Pertinent positive and negative findings as per HPI. All other systems negative. - Past Medical History Pertinent Past Medical History: Yes Neurological History: No Pertinent History ENT History: Cataracts Cardiac History: Arrhythmia, Coronary Artery Disease, Myocardial Infarction (NH), High Cholesterol, Hypertension Respiratory History: No Pertinent History Endocrine Medical History: No Pertinent History, Hypothyroidism Musculoskeletal History: Arthritis, Osteoarthritis GI Medical History: No Pertinent History History: No Pertinent History Psycho-Social History: Depression, Anxiety Female Reproductive Disorders: Fibroids Other Medical History: SILENT [place], rheumatic fever, heart murmur, - Past Surgical History Past Surgical History: Yes Neuro Surgical History: No Pertinent History Cardiac: Cardiac Catheterization Respiratory: No Pertinent History Gastrointestinal: No Pertinent History Genitourinary: No Pertinent History Musculoskeletal: Joint Replacement Female Surgical History: Hysterectomy, Tubal Ligation Other Surgical History: maico knee replaced, - Social History Smoking Status: Former smoker How long have you smoked: 10 years Exposure to second hand smoke: Yes Drug Use: none Patient Lives Alone: Yes Physical Exam - Vital Signs Vital Signs: Vital Signs - 24 hr 10/27/23 10/27/23 10/27/23 19:00 20:00 21:18 Temperature 98.8 F Pulse Rate 63 Respiratory 16 16 Rate Blood Pressure 138/65 [Right Arm] O2 Sat by Pulse 95 93 L Oximetry 10/27/23 10/28/23 10/28/23 23:00 00:00 03:00 Temperature 98.7 F 98.3 F Pulse Rate 61 87 Respiratory 19 16 16 Rate Blood Pressure 129/60 118/58 [Right Arm] O2 Sat by Pulse 97 93 L Oximetry 10/28/23 10/28/23 10/28/23 04:00 07:00 07:10 Temperature 97.8 F Pulse Rate 91 H Respiratory 16 16 Rate Blood Pressure 117/70 [Right Arm] O2 Sat by Pulse 93 L 93 L Oximetry 10/28/23 10/28/23 10/28/23 08:00 11:36 12:00 Temperature 97.9 F Pulse Rate 80 Respiratory 16 16 16 Rate Blood Pressure 128/57 [Right Arm] O2 Sat by Pulse 94 L Oximetry 10/28/23 10/28/23 16:00 16:54 Temperature 98.1 F 98.1 F Pulse Rate 72 72 Respiratory 16 16 Rate Blood Pressure 155/70 155/70 [Right Arm] O2 Sat by Pulse 93 L 93 L Oximetry Results - Labs Lab/Micro Results: Microbiology 10/24/23 10:34 Salmonella/Shigella Screen - Final Stool Stool Culture Result 1 - Final Escherichia coli Shiga Toxins EIA - Final Giardia lamblia (PCR) - Final Cryptosporidium Antigen - Final 10/24/23 13:18 Urine Culture - Final Urine, Void Escherichia Coli Impressions & Recommendations - ED Arrival Time ED Arrival Date & Time: ED Arrival Date and Time 10/24/23 12:38 Last known well time: - NIHSS IV Thrombolysis Standard of Care: IV thrombolysis as a standard of care in acute stroke discussed with AUGUSTA RUSSELL MD. Risk, benefits, and options of IV thrombolytic therapy for acute ischemic stroke were discussed with the patient/family MONE REYES. We discussed that use of IV tenecteplase is in line with national stroke guidelines. We discussed that risks of IV thrombolytic use include intracranial hemorrhage, other fatal bleeding risks, and angioedema. Alternatives of treatment, including not proceeding with thrombolytic therapy were discussed. - Recommendations Recommendations: -Neuro checks, NIHSS, vital signs monitoring as per post tenecteplase protocol -Repeat non contrast head CT or noncontrast MRI brain 24 hours after IV thrombol yltic administration. -Obtain STAT non contrast head CT if there are new neurological deficits, worsening of current deficits, or with complaint of severe headache. Notify Neurology MARIA INES of changes in neurological exam. -Nicardipine gtt as needed to maintain BP< 180/105 x 24hr post tenecteplase administration. -Monitor for angioedema -SCD's for DVT prophylaxis. Work up: -Basic labs (CBC, BMP, TSH+T4) if not done already. -INR,PTT if not done already -Fasting Lipid Panel and Hgb A1c -Transthroacic echocardiogram [with bubble study] -EKG + Telemetry- monitor for A-FIB Secondary Stroke Prevention -Hold off on antiplatelet therapy x 24 hr post IV thrombolytic therapy Decision to initiate antiplatelet therapy, or anticoagulation if needed, will be based on repeat imaging at 24 hour post thrombolytic administration. -If not medical contraindication, start high intensity statin. Eg. Atrovastatin 80 mg daily Risk Factor Management -HTN control: BP <180/105 for first 24 hr post tenecteplase -If diabetic, optimize glucose control: mcfp goal HgA1c <7 -HLD control: Long-term goal LDL <70. High intensity statin recommended. Moderate intensity statin in patients > 75 years. -Smoking Alcohol Use Drug use cessation counseling Stroke Rehabilitation: -Physical therapy, occupational therapy, speech therapy consults -Social work and case management consults for help with discharge needs. Impression and recommendation were discussed with Dr. AUGUSTA RUSSELL MD Thank you for allowing us to participate in this patient's care. Please call [facility] with questions, concerns, or change in patient's neurological status. This consult was performed via secure telemedicine audio/visual platform with [ ] RN assisting at bedside. Patient identity verified and consent obtained. TIQ recieved at [ ] Neuro Cart Time: Delays in Patient Encounter:
[2023-10-28] MEDS ORDERED: Xylocaine-Mpf 2% 5 Ml Vial ONE (17:46)
[2023-10-28] MEDS ORDERED: Versed 2 MG/2 ML Injection ONE (17:47)
[2023-10-28] MEDS ORDERED: DIPRIVAN 200 MG/20 ML IV ONE ×2 (17:47→18:14)
[2023-10-28 20:17] VITALS: BP 125/67; PULSE 68; TEMP 98
[2023-10-28 20:18] VITALS: RESP 18
--- NOTE | 2023-10-29 14:05 | PCM.DS ---
Discharge Summary Date of Admission: 10/25/23 11:39 Date of Discharge: 10/28/23 Admitting Physician: ANGELICA VALENCIA MD Consults: Consults on Case 10/25/23 09:43 Consult Surgery ROUTINE Primary Care Provider: ANGELICA KRISHNA Allergies Allergies No Known Drug Allergies Allergy (Verified 10/24/23 16:40) Hospital Summary - Hospital Course Hospital Course: 68 year old female admitted 10/24/23 for infective colitis after experience a 3 week history of nausea, and two week history of vomiting and diarrhea. CT imaging of the abdomen demonstrating mild caecum and ascending colonic wall edema with related some fat stranding suggestive of mild inflammatory/infectious etiology. KUB unremarkable. CXR with mild pulmonary edema. Initial lab findings remarkable for hypokalemia with potassium at 2.4 and urinalysis suggestive of UTI- culture showing Ecoli with sensitivity to levaquin. IP treatment with potassium supplementation, levaquin, and flagyl. EGD performed with noted esophagitis, gastric polyp, and hernia. Patient continues with diarrhea, and now hematochezia. Plan for colonoscopy Tuesday per surgery. 10/26: Met with patient bedside. Nausea and vomiting have resolved this morning. Still having bouts of diarrhea with blood. Shortness of breath also improved. Epigastric pain resolved. Plan for surgery to evaluate for colonoscopy tomorrow if patient able to tolerate prep. Denies fever,cough, sob, cp, abdominal pain, MORRIS, dizziness, N/V. No urinary symptoms. 10/28/23: Met with patient bedside. Initially stated nausea/vomiting have resolved but later vomited during interview. She was able to tolerate colonoscopy prep and is scheduled today. Patient was wanting to discharge after the colonoscopy. Labs and vitals are stable. Would like patient to be able to tolerate a diet before she is discharged -pending colonoscopy results. No further shortness of breath. No urinary symptoms. Has received five days of levaquin which should be sufficient coverage for UTI. - Patient tolerated diet, per RN no findings on colonoscopy or meds changes per surgery. Patient dismissed. Follow up with PCP/surgery. Discharge Note Latest Assessment & Plan (1) Infectious colitis Current Visit: Yes Status: Acute Assessment & Plan: -CT demonstrating mild caecum and ascending colonic wall edema with related some fat stranding. This could suggest mild inflammatory/infectious etiology -Stool for cdiff, culture, O&P, giardia -NPO -anti -emetics -hold immodium until stool studies complete -probiotic 10/24: -No diarrheal episode overnight, stool studies pending collection -NPO -Surg consult for EGD -Continue Flagyl 10/25: -EGD with esophagitis/gastric polyp/hernia -colonoscopy Tuesday -Continue zosyn -CDiff negative 10/26: -Surgery to eval for colonoscopy Tuesday if pt able to tolerate prep - nausea/vomiting have resolved 10/27: -colonoscopy scheduled today, may discharge pending findings/tolerating diet Code(s): A09 - INFECTIOUS GASTROENTERITIS AND COLITIS, UNSPECIFIED (2) UTI (urinary tract infection) Current Visit: Yes Status: Acute Assessment & Plan: -UA reviewed, suspicious for UTI, Levaquin given in ED, will continue, follow culture 10/24: -Ucult with gram -, continue levaquin, follow culture 10/25: -Ucult with ecoli - sensitive to levaquin, will continue 10/27: -5 days of levaquin, no need for further abx Code(s): N39.0 - URINARY TRACT INFECTION, SITE NOT SPECIFIED (3) HTN (hypertension) Current Visit: Yes Status: Acute Assessment & Plan: -stable- will continue home meds Code(s): I10 - ESSENTIAL (PRIMARY) HYPERTENSION (4) HLD (hyperlipidemia) Current Visit: Yes Status: Acute Assessment & Plan: -continue statin Code(s): E78.5 - HYPERLIPIDEMIA, UNSPECIFIED (5) CAD (coronary artery disease) Current Visit: Yes Status: Acute Assessment & Plan: -Follows with Dr. Lopez, h/o silent [place], will continue home meds - hold diuretics Code(s): I25.10 - ATHSCL HEART DISEASE OF [place] CORONARY ARTERY W/O ANG PCTRS (6) Hypokalemia Current Visit: Yes Status: Acute Assessment & Plan: -Received 80meq in ED, will recheck and replenish as appropriate -Hold diuretics -Monitor renal/lytes -tele 10/24: -Received 40 meq of oral potassium, labs now wnl, will continue to monitor and replenish as appropriate 10/25: -3.3 this morning, will replenish 10/26: -resolved Code(s): E87.6 - HYPOKALEMIA (7) Hypothyroid Current Visit: Yes Status: Acute Assessment & Plan: -continue home meds #Metabolic acidosis -most likely secondary to vomiting/diarrhea -oral bicarb -continue to monitor 10/26: -improving, continue bicarb I spent 35 minutes [id number] with the patient on the day of discharge per forming discharge exam, discussing hospital stay and discharge instructions with patient and caregivers, preparation of discharge records, prescriptions & referral forms and addressing any questions/concerns the patient had as documented above. - Vitals & Intake/Output Vital Signs: Vital Signs Temperature 98.0 F 10/28/23 20:00 Pulse Rate 68 10/28/23 20:00 Respiratory Rate 18 10/28/23 20:00 Blood Pressure 125/67 10/28/23 20:00 O2 Sat by Pulse Oximetry 95 10/28/23 20:00 Intake & Output: Intake & Output 10/27/23 10/28/23 10/29/23 10/30/23 11:59 11:59 11:59 11:59 Intake Total 3212 4140 300 Balance 3212 4140 300 Weight 71 kg 71 kg - Lab Result Diagrams: 10/27/23 04:20 10/27/23 04:20 Micro Results-Entire Visit: Microbiology 10/24/23 10:34 Salmonella/Shigella Screen - Final Stool Stool Culture Result 1 - Final Escherichia coli Shiga Toxins EIA - Final Ova and Parasite Concentrate Exam - Final Ova and Parasite Result 1 - Final Giardia lamblia (PCR) - Final Cryptosporidium Antigen - Final 10/24/23 13:18 Urine Culture - Final Urine, Void Escherichia Coli - Procedures and Test Procedures and Tests throughout Hospitalization: Therapy Orders & Screens 10/25/23 17:12 Oxygen NASAL CANNULA 2 lpm Comment: Diagnosis: Hypokalemia, infectious colitis 10/26/23 10:56 Incentive Spirometry UD Comment: Diagnosis: Hypokalemia, infectious colitis 10/27/23 07:18 Incentive Spirometry UD Comment: Diagnosis: Hypokalemia, infectious colitis, UTI Discharge Exam General Appearance: no apparent distress Neurologic Exam: alert, oriented x 3, cooperative Eye Exam: PERRL Ears, Nose, Throat Exam: normal ENT inspection Neck Exam: normal inspection Respiratory Exam: normal breath sounds, lungs clear Cardiovascular Exam: regular rate/rhythm, normal heart sounds Gastrointestinal/Abdomen Exam: soft, normal bowel sounds Pelvic Exam: deferred, normal external exam Rectal Exam: deferred Back Exam: normal inspection Extremity Exam: normal inspection Skin Exam: normal color Final Diagnosis/Problem List - Final Discharge Diagnosis/Problem (1) Infectious colitis Status: Acute Code(s): A09 - INFECTIOUS GASTROENTERITIS AND COLITIS, UNSPECIFIED (2) UTI (urinary tract infection) Status: Acute Code(s): N39.0 - URINARY TRACT INFECTION, SITE NOT SPECIFIED (3) HTN (hypertension) Status: Acute Code(s): I10 - ESSENTIAL (PRIMARY) HYPERTENSION (4) HLD (hyperlipidemia) Status: Acute Code(s): E78.5 - HYPERLIPIDEMIA, UNSPECIFIED (5) CAD (coronary artery disease) Status: Acute Code(s): I25.10 - ATHSCL HEART DISEASE OF [place] CORONARY ARTERY W/O ANG PCTRS (6) Hypokalemia Status: Acute Code(s): E87.6 - HYPOKALEMIA (7) Hypothyroid Status: Acute Code(s): E03.9 - HYPOTHYROIDISM, UNSPECIFIED (8) Metabolic acidosis Status: Acute Code(s): E87.20 - ACIDOSIS, UNSPECIFIED - Discharge Disposition: Home, Self-Care Condition: Stable Prescriptions: Continue ALPRAZolam [Alprazolam] 0.5 mg PO TID PRN PRN PRN Reason: Nausea/Vomiting hydroCHLOROthiazide [Hydrochlorothiazide] 50 mg PO DAILY Atorvastatin Calcium 80 mg PO DAILY Amlodipine Besylate 5 mg [Norvasc 5 mg] 2.5 mg PO HS Aspirin EC 81 mg [Ecotrin 81 mg] 1 tab PO DAILY Levothyroxine Sodium 25 Mcg [Synthroid 25 Mcg] 25 mcg PO DAILY Vitamin D3/Soy Isoflavone [Iso D3 2,000 Unit Tablet] 2,000 units PO DAILY Sertraline HCl [Zoloft] 100 mg PO HS Losartan Potassium 25 mg PO DAILY Furosemide 20 mg [Lasix 20 mg] 20 mg PO DAILY Dextroamphetamine/Amphetamine [Dextroamp-Amphetamine 5 mg Tab] 5 mg PO 0800,1200 Ascorbic Acid/Collagen Hydr [Collagen Plus Vit C Capsule] 2,500 mg PO DAILY Instructions: Hypokalemia, Colitis Additional Instructions: Hold aspirin for one week. Follow up with: ANGELICA KRISHNA [Primary Care Provider] - DANE LIM [COURTESY STAFF] - 1 Week Forms: Discharge Instructions
[2023-10-29 21:51] VITALS: O2SAT 96
--- NOTE | 2023-10-31 09:47 | OP ---
SURGERY DATE/TIME: 10/28/2023 180 PREOPERATIVE DIAGNOSIS: GI bleed possibly lower. POSTOPERATIVE DIAGNOSIS: Normal. PROCEDURE: Colonoscopic examination to cecum. SURGEON: Nithin Hernández M.D. ANESTHESIA: MAC. COMPLICATIONS: None. CONDITION: Stable. INDICATION: The patient is having GI bleed. She had an upper scope by Dr. Briceno. She now has had a bowel prep for lower scope. DESCRIPTION OF PROCEDURE: She is taken to endoscopy. Anal digital examination satisfactory. Tone satisfactory. Rectum normal. Sigmoid slightly tortuous, a little narrow. Scope over to the cecum. Base of the cecum, ileocecal valve, appendiceal orifice normal. Ascending, hepatic, transverse, splenic, descending, sigmoid there is some light stool but in general there was a satisfactory prep. Withdrawal time is 6 minutes. Findings were normal. IMPRESSION: Normal, this was discussed with the friend in the waiting room. The patient can be discharged.
== END 2023-10-28 22:15 | disposition home or self-care (01) | DRG 392 ==
LOC: ED 12:38 → MED SURG 15:50 → OBSVTOIN 10-25 11:39
PROVIDERS: ADMIT Internal Medicine; ATTEND Internal Medicine
PROC: 0DJ08ZZ Inspection of Upper Intestinal Tract, Via Natural or Artificial Opening Endoscopic (ICD-10-PCS; principal; 2023-10-25)
PROC: 0DJD8ZZ Inspection of Lower Intestinal Tract, Via Natural or Artificial Opening Endoscopic (ICD-10-PCS; 2023-10-28)
DX: A09 Infectious gastroenteritis and colitis, unspecified (principal); N39.0 Urinary tract infection, site not specified; E87.20 Acidosis, unspecified; I10 Essential (primary) hypertension; E78.5 Hyperlipidemia, unspecified; I25.10 Atherosclerotic heart disease of native coronary artery without angina pectoris; E87.6 Hypokalemia; E03.9 Hypothyroidism, unspecified; B96.20 Unspecified Escherichia coli [E. coli] as the cause of diseases classified elsewhere; R10.13 Epigastric pain; R11.2 Nausea with vomiting, unspecified; K29.70 Gastritis, unspecified, without bleeding; K31.7 Polyp of stomach and duodenum; K20.90 Esophagitis, unspecified without bleeding; K44.9 Diaphragmatic hernia without obstruction or gangrene; R19.5 Other fecal abnormalities; Z79.899 Other long term (current) drug therapy
CPT/HCPCS: 00731; 36000; 36415; 43239; 45378; 71045; 74018; 74176; 80053; 81001; 83605; 83690; 83735; 84132; 84484; 85025; 87045; 87046; 87077; 87086; 87177; 87186; 87209; 87328; 87329; 87427; 87493; 93268; 94760; 94762; 96365; 96374; 96375; 99140; 99285; G0378; Q3014; J1940; J1956; J2250; J2270; J2405; J2704; J3475; J3480; A9270-GY